=== PATIENT | female | born 1945 | race Caucasian/White ===

== ENCOUNTER 2018-01-03 21:00 | Inpatient (IN) | payer MEDICARE ==
--- NOTE | 2018-01-03 22:12 | RAD ---
AP PELVIS: HISTORY: Fall with injury to pelvis. FINDINGS: There is evidence of a fracture involving the superior ramus on the right. No displacement apparent. The pelvis otherwise appears intact. The hips appear intact. IMPRESSION: Evidence of a fracture involving the right superior ramus. POS: [facility]
--- NOTE | 2018-01-03 22:26 | CT ---
CT HEAD WITHOUT CONTRAST: INDICATIONS: Fall with injury to head. COMPARISON: None. FINDINGS: Mild cortical volume loss. Ventricles have normal size and position. Moderate to severe chronic isc hemic white matter changes with evidence of old lacunar infarcts in both cerebral hemispheres. There is no evidence of hemorrhage, mass, or acute cortical infarct. Sinuses and mastoids are well aerate d. IMPRESSION: 1. Moderate to severe chronic ischemic white matter change. 2. Evidence of lacunar infarcts in the deep white matter in both cerebral hemispheres. 3. No acute cortical infarct. 4. Acute lacunar infarct cannot be excluded. POS: [facility]
--- NOTE | 2018-01-03 22:29 | CT ---
CT CERVICAL SPINE: INDICATIONS: Fall with injury to head and neck. TECHNIQUE: Multiple axial tomograms obtained through the cervical spine with multiplanar reconstruction. FINDINGS: The cervical vertebrae maintain height and alignment. There are mild to moderate degenerative change s of the cervical spine. IMPRESSION: 1. No evidence of cervical spine fracture. 2. Incidentally noted is an enlarged and heterogeneous thyroid with numerous hyperdense nodules. Co nsider elective thyroid ultrasound examination. POS: [facility]
[2018-01-03 22:35] LABS: Hemoglobin 14.3 g/dL (12.0-16.0); Mean Corpuscular HGB CONC 34.8 g/dL (32.0-36.0); Mean Corpuscular Hemoglobin 31.5 pg (27.0-31.0); Mean Corpuscular Volume 90.5 fl (81.0-99.0); Mean Platelet Volume 7.5 fL (7.4-10.4); Platelet Count 222 thou/uL (130-400); RBC Distribution Width 13.3 % (11.5-14.5); Red Blood Cell (RBC) Count 4.52 mill/uL (4.20-5.40); White Blood Cell (WBC) Count 22.4 thou/uL (4.8-10.8)
[2018-01-03 22:40] LABS: PTT 29.1 SEC (22.9-36.1); Prothrombin Time 13.8 SEC (12.0-14.7)
[2018-01-03 22:48] LABS: Band 3 % (5-11); Lymphocytes 3 % (21-51); MDiff Complete? YES; Monocytes 5 % (0-10); Neutrophil 89 % (42-75)
[2018-01-03 22:55] LABS: ALT (SGPT) 21 U/L (8-55); AST (SGOT) 32 U/L (5-34); Albumin 4.2 g/dL (3.4-4.8); Alkaline Phosphatase 76 U/L (40-150); Anion Gap 15 mmol/L (10-20); BUN (Urea Nitrogen) 16 mg/dL (9.8-20.1); Calc. Creatinine Clearance 0 mL/min (70-130); Calcium 9.6 mg/dL (7.8-10.44); Carbon Dioxide 25 mmol/L (23-31); Chloride 105 mmol/L (98-107); Estimated GFR-MDRD 45; Globulin 2.2 g/dL (2.4-3.5); Glucose 168 mg/dL (80-115); Protein, Total 6.4 g/dL (6.0-8.3); Sodium 142 mmol/L (136-145)
[2018-01-03 23:00] LABS: Potassium 2.5 mmol/L (3.5-5.1)
[2018-01-03] MEDS ORDERED: hydrALAZINE 20 MG/ML VIAL ONE (23:00)
[2018-01-03] MEDS ORDERED: Potassium Chloride 20 MEQ TAB ONE (23:04)
--- NOTE | 2018-01-03 23:10 | RAD ---
PORTABLE CHEST: HISTORY: Fall with injury to head and neck. FINDINGS: Lung hamilton are clear of infiltrates. There are scattered calcified granuloma. No effusion, edema, or pneumothorax seen. There is cardiomegaly. The osseous structures appear intact. IMPRESSION: No acute abnormality identified. POS: [facility]
[2018-01-04] MEDS ORDERED: Piperacillin/Tazobactam 3.375 GM VIAL ONE (01:06)
--- NOTE | 2018-01-04 01:21 | PDOC.FPRHP ---
- History of Present Illness Chief Complaint: Fall History of Present Illness: This is a 72 y/o F with PMHx of untreated HTN who presented to the ED after a fall. The patient fell due to tripping on a rug earlier today. She reports she fell on her tailbone and has had pain in that region since then. She denies any headaches, reports some mild chest pain since getting to the ED, but denies any SOB or vision changes. She reports during the fall that she did hit her head, but doesn't have any dizziness or confusion. She does endorse having some increased memory loss problems over the past few months. She endorses decreased appetite today and had some nausea upon arrival the ED, but denies any vomiting. She has not been to see a doctor in over 4 years. ED Course: The pt was given Zosyn 3.375g, Rocephin 2g, Hydralazine 10mg, and KCl 40 mEq in the ED. - Allergies/Adverse Reactions Allergies Allergy/AdvReac Type Severity Reaction Status Date / Time No Known Allergies Allergy Unverified 01/04/18 02:09 - History PMHx: 1. HTN - untreated for 4+ years PSHx: 1. Hysterectomy 2. Cholecystectomy 3. Abd sx for twisted bowels FHx: Mother - cancer (unsure what type) Father - DM2 Social: Smokes < 1/2 ppd for 20 years, drinks a small glass of bourbon every day (est equivalent of 3 ounces). Denies drug use. Lives alone. No PCP - Review of Systems General: reports: weight/appetite/sleep changes, fatigue. denies: fever/chills Eyes: denies: eye pain, vision changes ENT: reports: rhinorrhea. denies: nasal congestion Respiratory: denies: cough, shortness of breath Cardiovascular: reports: chest pain. denies: edema Gastrointestinal: reports: nausea. denies: vomiting, diarrhea, constipation, abdominal pain Genitourinary: denies: dysuria, polyuria Skin: denies: rashes, lesions Musculoskeletal: reports: pain, tenderness Neurological: denies: numbness, syncope - Vital signs BP: 186/86, was initially 226/110 HR: 56 RR: 19 Tmax: 97.8 Pox: 95% on RA Wt: 45.4 kg - Physical Exam Constitutional: NAD, awake, alert and oriented, well developed HEENT: normocephalic and atraumatic, PERRLA, EOMI, conjunctiva clear, grossly normal vision, grossly normal hearing, normal nasal mucosa, MMM, oropharynx clear (dentures in place) Neck: supple, no LAD, other (multiple thyroid nodules, no goiter) Heart: RRR, normal S1/S2, no murmurs/rubs/gallops, pulses present, no edema Lungs: CTAB, no respiratory distress, good air movement, no rales/rhonchi, no wheezing, no retractions Abdomen: soft, non-tender, bowel sounds present, no masses/distention Musculoskeletal: normal structure, normal tone Neurological: no focal deficit, CN II-XII intact Skin: good turgor, capillary refill <2 seconds Heme/Lymphatic: no unusual bruising or bleeding, no purpura Psychiatric: normal mood and affect, good judgment and insight FMR H&P: Results - Labs Result Diagrams: 01/03/18 22:26 01/03/18 22:26 Lab results: WBC 22.4 thou/uL (4.8-10.8) H 01/03/18 22:26 Hgb 14.3 g/dL (12.0-16.0) 01/03/18 22: Hct 40.9 % (36.0-47.0) 01/03/18 22: MCV 90.5 fl (81.0-99.0) 01/03/18 22:26 Plt Count 222 thou/uL (130-400) 01/03/18 22:26 Band Neuts % (Manual) 3 % (5-11) L 01/03/18 22:26 Sodium 142 mmol/L (136-145) 01/03/18 22:26 Potassium 2.5 mmol/L (3.5-5.1) L* 01/03/18 22:26 Chloride 105 mmol/L (98-107) 01/03/18 22:26 Carbon Dioxide 25 mmol/L (23-31) 01/03/18 22:26 BUN 16 mg/dL (9.8-20.1) 01/03/18 22:26 Creatinine 1.19 mg/dL (0.6-1.1) H 01/03/18 22:26 Glucose 168 mg/dL (80-115) H 01/03/18 22:26 Calcium 9.6 mg/dL (7.8-10.44) 01/03/18 22:26 Total Bilirubin 1.0 mg/dL (0.2-1.2) 01/03/18 22:26 AST 32 U/L (5-34) 01/03/18 22:26 ALT 21 U/L (8-55) 01/03/18 22:26 Alkaline Phosphatase 76 U/L (40-150) 01/03/18 22:26 Serum Total Protein 6.4 g/dL (6.0-8.3) 01/03/18 22:26 Albumin 4.2 g/dL (3.4-4.8) 01/03/18 22:26 - EKG Interpretation EKG: NSR - Radiology Interpretation Chest x-ray Status: image reviewed by me, report reviewed by me Additional comment: No acute process CT scan - head Status: image reviewed by me, report reviewed by me Additional comment: Chronic ischemic white matter changes, old lacunar infarcts, no acute cortical infarct Other Status: image reviewed by me, report reviewed by me Additional comment: Pelvis x-ray: R superior pubic rami fracture FMR H&P: A/P - Problem List (1) Hypertensive urgency Current Visit: Yes Status: Acute Code(s): I16.0 - HYPERTENSIVE URGENCY (2) Fracture of superior pubic ramus Current Visit: Yes Status: Acute Code(s): S32.519A - FRACTURE OF SUPERIOR RIM OF UNSP PUBIS, INIT FOR CLOS FX Qualifiers: Encounter type: initial encounter Fracture type: closed Laterality: right Qualified Code(s): S32.511A - Fracture of superior rim of right pubis, initial encounter for closed fracture (3) Leukocytosis Current Visit: Yes Status: Acute Code(s): D72.829 - ELEVATED WHITE BLOOD CELL COUNT, UNSPECIFIED Qualifiers: Leukocytosis type: unspecified Qualified Code(s): D72.829 - Elevated white blood cell count, unspecified (4) Hypokalemia Current Visit: Yes Status: Acute Code(s): E87.6 - HYPOKALEMIA (5) MONSERRAT (acute kidney injury) Current Visit: Yes Status: Acute Code(s): N17.9 - ACUTE KIDNEY FAILURE, UNSPECIFIED (6) Hyperglycemia Current Visit: Yes Status: Acute Code(s): R73.9 - HYPERGLYCEMIA, UNSPECIFIED (7) Tobacco abuse Current Visit: Yes Status: Acute Code(s): Z72.0 - TOBACCO USE (8) Alcohol abuse Current Visit: Yes Status: Acute Code(s): F10.10 - ALCOHOL ABUSE, UNCOMPLICATED - Plan HTN Urgency The patient initially presented with BP 226/110. It has improved to 186/86 after one dose of Hydralazine in the ED. She has had untreated HTN for the past 4 years due to not establishing with a PCP since moving here. -Will start lisinopril 10 mg -Enalaprilat prn -Obs on tele -Monitor BP Hypokalemia Initial K+ was 2.5. s/p 40 mEq of KCl in the ED -Will give another 40mEq of KCl -Monitor with BMP in AM -Check magnesium level R Superior Pubic Rami Fracture Patient presented after fall. She was found to have fx of R superior pubic rami. Wood was called from ED and he discussed that she would benefit from rehab. -PT/OT -Tramadol and tylenol prn pain -Fall precautions MONSERRAT vs CKD Unknown baseline. Cr initially 1.19. Could be related to HTN urgency vs longstanding untreated HTN vs dehydration. -LR @ 85 -Monitor Leukocytosis WBC 22 on admission. Unclear what this is related to as the patient has no signs /symptoms of infection. Could be reactive -Will monitor -LR @ 85 -UA Hyperglycemia Initial Glucose was 168, unsure whether this was fasting. Pt has no h/o diabetes -Will check fasting glucose in AM and if elevated then will check A1c Thyroid Nodules Multiple hypodense thyroid nodules seen on Cervical spine CT scan. -Check TSH -F/U with outpatient thyroid US HTN -Start Lisinopril -Help pt establish with PCP Tobacco Abuse -Production Posting Clerk on cessation EtOH Abuse -Production Posting Clerk on cessation -ASE protocol VTE ppx: Heparin Code status: DNR Disposition/LOS: Obs on tele, length of stay likely less than 48 hours FMR H&P: Upper Level - Pertinent history 72 yo F with PMH of HTN presents after fall at home. Patient states she tripped on a rug and hit her head. No LoC, dizziness, or amnesia after event. No prior falls. Has not seen a doctor for years, and has been off of BP medication for years as well. R superior pubic ramus fx noted on hip Xray, ortho consulted in ER. Was also found to be hypokalemic and have an elevated WBC count, so she is being admitted. Denies any fever/chills, CP, SOB, abd pain , diarrhea, cough/congestion, dysuria, headache. - Pertinent findings PE: T: 97.8 P: 56 BP: 186/86 RR: 19 96% on RA Gen: [place] female in NAD HEENT: PERRL, EOMI, MMM, no lymphadenopathy or thyromegaly CV: RRR no murmurs, distal pulses intact Pulm: CTAB, no wheezes or rhonchi Abd: soft, NT/ND, BS present, no masses or distention Ext: no cyanosis or edema MSK: GORE well, no joint or muscle pain or swelling Neuro: CN 2-12 intact, normal sensation Skin: no rashes or lesions Psych: A&O x3, appropriate in conversation - Plan Date/Time: 01/04/18 0116 72 yo F here after a fall. 1) Hypokalemia: Obs on telemetry floor. Will replete and check in AM. 2) HTN urgency: Initially 200s/100s, normal after hydralazine by time of our interview. Will start on lisinopril. 3) Leukocytosis: Suspect this is not infectious in nature, possibly a stress response. 4) MONSERRAT: Trend BMP, possibly CKD due to poorly controlled HTN for years 5) tobacco abuse: Production Posting Clerk cessation I, [Rachid Watters], have evaluated this patient and agree with findings/plan as outlined by software development intern resident. Pertinent changes/additions are listed here.
[2018-01-04 01:34] LABS: Bilirubin Small (Negative); Blood, Urine Negative (Negative); Clarity CLOUDY (Clear); Glucose, Urine (Dipstick) 100 mg/dL (Negative); Leukocyte Negative (Negative); Nitrite Negative (Negative); Protein, Urine (Dipstick) 30 mg/dL (Neg-Trace); Specific Gravity, Urine 1.023 (1.002-1.036); Urobilinogen 0.2 mg/dL (0.2-1.0); pH, Urine 5.5 (5.0-9.0)
[2018-01-04 01:37] LABS: Bacteria/HPF None Seen HPF (None Seen); Pathc Cast-AUWi Flag 0.87 (0-2.49); Squamous Epithelial 0-3 HPF (0-3); WBC/HPF 0-3 HPF (0-3)
[2018-01-04 01:38] LABS: Yeast-AUWi Flag 82.7 (0-25.0)
[2018-01-04 01:42] LABS: Hyaline Casts/LPF 0-3 HYALINE CAST LPF (0-3 Hyaline); Yeast-All Forms None Seen HPF (None Seen)
[2018-01-04 01:43] LABS: Crystals/HPF 1+ CA OXALATE HPF (Negative); Renal Epithelial None Seen HPF (0-3); Transitional Epithelial NONE SEEN HPF (0-3)
[2018-01-04 03:02] LABS: CKMB 1.4 ng/mL (0-6.6); Troponin I Less than 0.010 ng/mL (< 0.028)
[2018-01-04] MEDS ORDERED: Acetaminophen 500 MG TAB PO PRN (03:15)
[2018-01-04] MEDS ORDERED: Ondansetron ODT 4 MG TAB PO PRN (03:15)
[2018-01-04] MEDS ORDERED: Enalaprilat Dihydrate 1.25 MG/ML VIAL SLOW IVP PRN (03:15)
[2018-01-04] MEDS: Potassium Chloride 20 MEQ in Premix Bag 1 BAG IVPB SCH ×2 (03:35→07:00)
[2018-01-04] MEDS: Lactated Ringer's 1,000 ML IV SCH (03:36)
[2018-01-04 04:53] LABS: #Lymphocytes 0.5 thou/uL (1.20-3.40); #Monocytes 0.7 thou/uL (0.11-0.59); #Neutrophils 13.2 thou/uL (1.40-6.50); %Basophils 0.1 % (0.0-1.0); %Eosinophils 0.1 % (0.0-10.0); %Lymphocytes 3.7 % (21.0-51.0); %Monocytes 4.8 % (0.0-10.0); %Neutrophils 91.3 % (42.0-75.0); Hemoglobin 13.7 g/dL (12.0-16.0); Mean Corpuscular HGB CONC 35.1 g/dL (32.0-36.0); Mean Corpuscular Hemoglobin 31.8 pg (27.0-31.0); Mean Corpuscular Volume 90.7 fl (81.0-99.0); Mean Platelet Volume 8.2 fL (7.4-10.4); Platelet Count 190 thou/uL (130-400); RBC Distribution Width 13.3 % (11.5-14.5); White Blood Cell (WBC) Count 14.5 thou/uL (4.8-10.8)
[2018-01-04 05:12] LABS: Anion Gap 15 mmol/L (10-20); BUN (Urea Nitrogen) 16 mg/dL (9.8-20.1); Calc. Creatinine Clearance 38 mL/min (70-130); Calcium 9.3 mg/dL (7.8-10.44); Carbon Dioxide 24 mmol/L (23-31); Chloride 105 mmol/L (98-107); Estimated GFR-MDRD 54; Glucose 134 mg/dL (80-115); Potassium 3.2 mmol/L (3.5-5.1); Sodium 141 mmol/L (136-145)
[2018-01-04] MEDS ORDERED: Potassium Chloride 20 MEQ TAB PO SCH (07:00)
[2018-01-04] MEDS ORDERED: Prevnar 13-Val Conj/PF 0.5 ML SYRINGE IM ONE (09:00)
[2018-01-04] MEDS: Heparin 5,000 UNITS/ML VIAL SC SCH ×3 (09:07→21:24)
[2018-01-04] MEDS: Lisinopril 10 MG TAB PO SCH (09:08)
[2018-01-04 09:50] LABS: Hemoglobin A1c 4.8 % (4.0-6.0)
--- NOTE | 2018-01-04 12:21 | HP ---
I have reviewed the history and physical of Dr. Vianca Schmidt. I have discussed the case with her. I agree with her assessment and plan. Ms. Erazo is a pleasant 72-year-old white female who was admitte d to the hospital after a fall. She was found to have significant elevations of her blood pressure a nd was admitted for further evaluation and treatment. She is having no chest pain, no shortness of breath. She has not seen a physician in over 4 years. PHYSICAL EXAMINATION: VITAL SIGNS: Currently, her blood pressure is 163/84, pulse rate is 61 and regular, respirations are 16, her pulse ox on room air is 96%. GENERAL: She is awake, alert, in no distress. ENT: No erythema or exudate. NECK: Supple. No JVD. CARDIAC: Heart rhythm regular, S4 gallop. There is a soft grade 2/6 systolic ejection murmur noted. LUNGS: Clear, without rales or wheezes. ABDOMEN: Flat and soft, without guarding, rebound or rigidity. EXTREMITIES: Trace edema. NEUROLOGIC: No focal deficits. LABORATORY DATA: CBC: White count is now 14,500, hemoglobin was 13.7, hematocrit is 39. Chemistrie s; initially she had a potassium at 2.5. It is now 3.2. Her sodium is 141, chloride is 105, bicarb is 24, BUN is 16, creatinine is 1.01. TSH is 4.2586. She was incidentally noted on a CT of her neck to have enlarged and heterogenous thyroid with numerou s hyperdense nodules. We will proceed with ultrasound following her normal TSH. ASSESSMENT: Hypertensive urgency, improving. PLAN: Continue with current medical management of her hypertension. Workup her thyroid nodules.
[2018-01-04] MEDS: hydrALAZINE 20 MG/ML VIAL SLOW IVP PRN ×3 (20:01→23:27)
[2018-01-04] MEDS: Sodium Chloride 0.9% 10 ML ONE (21:21)
[2018-01-04] MEDS ORDERED: Sodium Chloride 0.9% 10 ML ONE (22:37)
[2018-01-04] MEDS: traMADol HCl 50 MG TAB PO PRN (23:27)
[2018-01-05] MEDS: Lactated Ringer's 1,000 ML IV SCH (00:13)
[2018-01-05] MEDS ORDERED: HYDROcodone/Acetaminophen 5/325 mg Tablet PO SCH (01:00)
[2018-01-05] MEDS ORDERED: Sodium Chloride 0.9% 10 ML ONE ×3 (04:22→12:34)
[2018-01-05] MEDS: hydrALAZINE 20 MG/ML VIAL SLOW IVP PRN ×4 (04:26→20:00)
[2018-01-05 05:51] LABS: #Basophils 0.1 thou/uL (0.0-0.2); #Eosinphils 0.1 thou/uL (0.0-0.7); #Lymphocytes 1.8 thou/uL (1.20-3.40); #Monocytes 1.1 thou/uL (0.11-0.59); #Neutrophils 7.3 thou/uL (1.40-6.50); %Basophils 0.7 % (0.0-1.0); %Eosinophils 0.5 % (0.0-10.0); %Lymphocytes 17.1 % (21.0-51.0); %Monocytes 10.5 % (0.0-10.0); %Neutrophils 71.2 % (42.0-75.0); Hemoglobin 12.8 g/dL (12.0-16.0); Mean Corpuscular Hemoglobin 31.1 pg (27.0-31.0); Mean Corpuscular Volume 91.6 fl (81.0-99.0); Mean Platelet Volume 8.6 fL (7.4-10.4); Platelet Count 158 thou/uL (130-400); RBC Distribution Width 13.6 % (11.5-14.5); Red Blood Cell (RBC) Count 4.11 mill/uL (4.20-5.40); White Blood Cell (WBC) Count 10.3 thou/uL (4.8-10.8)
[2018-01-05 06:05] LABS: Anion Gap 11 mmol/L (10-20); BUN (Urea Nitrogen) 13 mg/dL (9.8-20.1); Calc. Creatinine Clearance 43 mL/min (70-130); Calcium 9.4 mg/dL (7.8-10.44); Carbon Dioxide 26 mmol/L (23-31); Chloride 108 mmol/L (98-107); Estimated GFR-MDRD 63; Glucose 99 mg/dL (80-115); Potassium 3.5 mmol/L (3.5-5.1); Sodium 141 mmol/L (136-145)
--- NOTE | 2018-01-05 07:28 | PDOC.FM ---
- Subjective Subjective: Pt c/o pain last night when bp elevated to 200s systolic. Endorsed some itching and pain this morning as well. - Objective MAR Reviewed: Yes Vital Signs & Weight: Vital Signs (12 hours) Temp Pulse Resp BP BP BP Pulse Ox 01/05/18 05:23 58 L 20 148/81 H 01/05/18 04:00 98.6 F 54 L 16 198/93 H 95 01/05/18 00:08 20 172/81 H 01/04/18 23:25 99.7 F H 70 20 190/87 H 96 01/04/18 23:24 190/87 H 01/04/18 22:17 212/98 H 01/04/18 21:18 77 20 218/92 H 01/04/18 20:01 99.8 F H 66 20 204/94 H 204/94 H 94 L Weight Admit Weight 46.357 kg Weight 46.357 kg I&O: 01/04/18 01/05/18 01/06/18 06:59 06:59 06:59 Intake Total 355 1894 Output Total 275 700 Balance 80 1194 Result Diagrams: 01/05/18 05:13 01/05/18 05:13 Phys Exam - Physical Examination Constitutional: NAD HEENT: PERRLA, moist MMs Respiratory: no wheezing, no rales, no rhonchi, clear to auscultation bilateral Cardiovascular: no significant murmur 2/6 systolic ejection murmur heard best at the righ upper sternal border Gastrointestinal: soft, non-tender, no distention Musculoskeletal: no edema, pulses present Neurological: non-focal, normal sensation Psychiatric: normal affect, A&O x 3 Skin: no rash, normal turgor Dx/Plan (1) MONSERRAT (acute kidney injury) Code(s): N17.9 - ACUTE KIDNEY FAILURE, UNSPECIFIED Status: Acute (2) Fracture of superior pubic ramus Code(s): S32.519A - FRACTURE OF SUPERIOR RIM OF UNSP PUBIS, INIT FOR CLOS FX Status: Acute Qualifiers: Encounter type: initial encounter Fracture type: closed Laterality: right Qualified Code(s): S32.511A - Fracture of superior rim of right pubis, initial encounter for closed fracture (3) Hyperglycemia Code(s): R73.9 - HYPERGLYCEMIA, UNSPECIFIED Status: Acute (4) Hypertensive urgency Code(s): I16.0 - HYPERTENSIVE URGENCY Status: Acute (5) Hypokalemia Code(s): E87.6 - HYPOKALEMIA Status: Acute (6) Tobacco abuse Code(s): Z72.0 - TOBACCO USE Status: Acute - Plan Plan: HTN Urgency The patient initially presented with BP 226/110. -140s during the day yesterday, abrupt increase to 204/94 last night d/t worsening pain -Responded to 5mg hydralazine IV X3 -Will add HCTZ 12.5 BID and continue lisinopril 10mg daily -Likely a pain component contributing to abrupt increase in bp as well. Will continue to control pain with tramadol and tylenol prn -Obs on tele -Continue to monitor BP R Superior Pubic Rami Fracture Patient presented after fall. She was found to have fx of R superior pubic rami. Wood was called from ED and he discussed that she would benefit from rehab. -PT/OT -Tramadol and tylenol prn pain -Fall precautions MONSERRAT vs CKD Unknown baseline. Cr initially 1.19-->.89 -Resolved this am -Dc LR @ 85 -Monitor Hypokalemia -resolved Leukocytosis WBC 22 on admission. Unclear what this is related to as the patient has no signs /symptoms of infection. Could be reactive -Will monitor -LR @ 85 -UA Hyperglycemia -Hba1c 4.8 -The elevated sugar was likely a stress response to the fracture and pain. Thyroid Nodules Multiple hypodense thyroid nodules seen on Cervical spine CT scan. -TSH wnl -Thyroid US ordered HTN -Continue Lisinopril and add HCTZ 12.5 mb BID -Help pt establish with PCP Tobacco Abuse -Skiver Hand on cessation EtOH Abuse -Skiver Hand on cessation -ASE protocol VTE ppx: Heparin Code status: DNR Disposition/LOS: Obs on tele, length of stay likely less than 48 hours
[2018-01-05] MEDS: traMADol HCl 50 MG TAB PO PRN (08:58)
[2018-01-05] MEDS: Heparin 5,000 UNITS/ML VIAL SC SCH ×3 (08:59→19:59)
[2018-01-05] MEDS: Lisinopril 10 MG TAB PO SCH (09:01)
--- NOTE | 2018-01-05 10:55 | ULT ---
THYROID ULTRASOUND: History: Thyroid nodules seen on CT. FINDINGS: The right lobe measures 4.4 cm in length and the left lobe measures 4.2 cm in length. The isthmus minerva sures 4 mm. The thyroid gland demonstrates diffuse heterogeneity. No definite focal solid or cystic mass is seen. IMPRESSION: Heterogeneous thyroid gland. POS: [facility]
[2018-01-05] MEDS: Sodium Chloride 0.9% 10 ML ONE (11:48)
[2018-01-05] MEDS ORDERED: diphenhydrAMINE 25 MG CAP PO PRN (11:52)
--- NOTE | 2018-01-05 12:29 | CON ---
DATE OF CONSULTATION: 01/05/2018 REQUESTING PHYSICIAN: Pamela St M.D. CONSULTING PHYSICIAN: Justin Muir M.D. REASON FOR CONSULTATION: Superior pubic ramus fracture. HISTORY OF PRESENT ILLNESS: This is a 72-year-old female who presented to the emergency de partment after a trip and fall at home. She states that she lost her balance and tripped. She state s this involved her dog getting in the way. She fell, landing on her bottom. She states that she lazcano d a pelvic and groin pain at the time of the fall. She does report a history of previous falls in ich she broke her tail bone. X-rays obtained in the emergency department show a nondisplaced right s uperior pubic ramus fracture. We were consulted for this reason. At bedside today, the patient stat es that she hit her head, but did not lose consciousness or have any dizziness. She denies any other injuries at the time of the fall. She denies any numbness or tingling distally in either of her leg s. She states her pain is controlled if she does not move. PAST MEDICAL HISTORY: Significant for hypertension, which has been untreated for the past 4 years. PAST SURGICAL HISTORY: Significant for hysterectomy, cholecystectomy, and abdominal surgery for twis darren bowel. FAMILY HISTORY: Reviewed and noncontributory. SOCIAL HISTORY: Patient states that she smokes approximately a half a pack a day for the past 20 yea rs. She states she drinks every day, either wine or bourbon. Denies any illicit drug use. Lives al one. ALLERGIES: No known drug allergies. REVIEW OF SYSTEMS: Ten-point review of systems conducted and otherwise negative except for as stated above. PHYSICAL EXAMINATION: VITAL SIGNS: Temperature 97.9, pulse of 58, blood pressure 154/87, respiratory rate of 16. GENERAL: The patient is awake, alert, and oriented x3. She is in no acute distress. Family at beds francisco j today. HEENT: Head is normocephalic, atraumatic. NECK: Supple. Trachea is midline. RESPIRATORY: Breathing is nonlabored. EXTREMITIES: Bilateral lower extremities examined today. There is active movement in both lower ext remities. Negative log roll on the right and the left leg. The patient is able to actively flex at the hip and the knee on both sides, however, the left side elicits pain. She has mild tenderness to palpation with the left side of the pelvis. Neurovascular status intact distally bilaterally. RADIOGRAPHIC FINDINGS: Including an AP pelvis demonstrates a nondisplaced superior right pubic ramus fracture. This radiographic finding was reviewed with Dr. Mishra. ASSESSMENT: Right superior pubic ramus fracture, nondisplaced. PLAN: At this time, the patient may weightbear as tolerated. I have gone over this plan of care wit h her at this time as well as with her family member. She will likely have some pain with early ambu lation. This will improve over time as she heals. She may ambulate with physical therapy with alex coburn. This is a nonsurgical fracture. Plan of care discussed and family and patient are in agreean ce and verbalized understanding.
[2018-01-05] MEDS: Hydrochlorothiazide 25 MG TAB PO SCH (19:59)
[2018-01-06 05:45] LABS: #Eosinphils 0.1 thou/uL (0.0-0.7); #Lymphocytes 1.8 thou/uL (1.20-3.40); #Neutrophils 5.9 thou/uL (1.40-6.50); %Basophils 0.5 % (0.0-1.0); %Eosinophils 1.7 % (0.0-10.0); %Lymphocytes 20.2 % (21.0-51.0); %Monocytes 11.2 % (0.0-10.0); %Neutrophils 66.3 % (42.0-75.0); Hemoglobin 12.7 g/dL (12.0-16.0); Mean Corpuscular HGB CONC 34.3 g/dL (32.0-36.0); Mean Corpuscular Hemoglobin 31.6 pg (27.0-31.0); Mean Corpuscular Volume 92.1 fl (81.0-99.0); Mean Platelet Volume 8.1 fL (7.4-10.4); Platelet Count 158 thou/uL (130-400); RBC Distribution Width 13.4 % (11.5-14.5); Red Blood Cell (RBC) Count 4.02 mill/uL (4.20-5.40); White Blood Cell (WBC) Count 8.9 thou/uL (4.8-10.8)
[2018-01-06] MEDS: hydrALAZINE 20 MG/ML VIAL SLOW IVP PRN ×3 (05:52→11:55)
[2018-01-06 06:00] LABS: Anion Gap 11 mmol/L (10-20); BUN (Urea Nitrogen) 12 mg/dL (9.8-20.1); Calc. Creatinine Clearance 35 mL/min (70-130); Calcium 9.4 mg/dL (7.8-10.44); Carbon Dioxide 27 mmol/L (23-31); Chloride 103 mmol/L (98-107); Estimated GFR-MDRD 54; Glucose 100 mg/dL (80-115); Potassium 3.6 mmol/L (3.5-5.1); Sodium 137 mmol/L (136-145)
--- NOTE | 2018-01-06 07:37 | ADD-PRG ---
ADDENDUM This is an addendum to the note of Dr. Pamela Marroquin. Ms. Erazo has just returned from her thyroid ultrasound. OBJECTIVE: GENERAL: She is pleasant, awake, alert, in no distress. VITAL SIGNS: Her current vital signs, blood pressure is now 154/87, pulse rate 60, respirations 16. She is nearing time and we can discharge her either to rehab or home, as she will need rehabilitation for her superior pubic ramus fracture, which is stable.
[2018-01-06] MEDS ORDERED: Acetaminophen 1,000 MG in Premix Bag 1 BAG IVPB SCH ×2 (08:15→12:00)
--- NOTE | 2018-01-06 08:15 | PDOC.FM ---
- Subjective Subjective: Elevated blood pressures overnight in 220s range. Pt has not received prn pain medications. She denies pain this morning. She denies any complaints this morning. - Objective MAR Reviewed: Yes Vital Signs & Weight: Vital Signs (12 hours) Temp Pulse Resp BP BP Pulse Ox 01/06/18 06:31 161/80 H 01/06/18 05:53 222/106 H 01/06/18 05:52 65 01/06/18 04:00 99.1 F 65 12 233/109 H 96 01/06/18 00:01 99.2 F 65 14 157/105 H 96 01/05/18 21:09 179/84 H Weight Admit Weight 46.357 kg Weight 43.363 kg I&O: 01/05/18 01/06/18 01/07/18 06:59 06:59 06:59 Intake Total 1894 500 Output Total 1550 925 Balance 344 -425 Result Diagrams: 01/06/18 05:30 01/06/18 05:30 Phys Exam - Physical Examination Constitutional: NAD HEENT: PERRLA, moist MMs Neck: no nodes, no JVD Respiratory: no wheezing, no rales, no rhonchi, clear to auscultation bilateral Cardiovascular: RRR, no significant murmur Gastrointestinal: soft, non-tender, no distention Musculoskeletal: no edema, pulses present Neurological: non-focal, normal sensation Psychiatric: normal affect, A&O x 3 Dx/Plan (1) MONSERRAT (acute kidney injury) Code(s): N17.9 - ACUTE KIDNEY FAILURE, UNSPECIFIED Status: Acute (2) Fracture of superior pubic ramus Code(s): S32.519A - FRACTURE OF SUPERIOR RIM OF UNSP PUBIS, INIT FOR CLOS FX Status: Acute Qualifiers: Encounter type: initial encounter Fracture type: closed Laterality: right Qualified Code(s): S32.511A - Fracture of superior rim of right pubis, initial encounter for closed fracture (3) Hyperglycemia Code(s): R73.9 - HYPERGLYCEMIA, UNSPECIFIED Status: Acute (4) Hypertensive urgency Code(s): I16.0 - HYPERTENSIVE URGENCY Status: Acute (5) Hypokalemia Code(s): E87.6 - HYPOKALEMIA Status: Acute (6) Tobacco abuse Code(s): Z72.0 - TOBACCO USE Status: Acute - Plan Plan: HTN Urgency The patient initially presented with BP 226/110. -continued elevated bp's in 200s overnight. -Will continue HCTZ 12.5 BID and continue lisinopril 10mg daily -Likely a pain component contributing to abrupt increase in bp as well. Will continue to control pain with tramadol and tylenol prn -Consider secondary causes of htn other than pain: pt has had normal potassium levels, normal calcium levels, mildly elevated tsh but normal ft4 and normal thyroid us (after CT thought they saw nodules); consider renal artery ultrasound and echo (pt does have 2/6 systolic ejection murmur). -Continue to monitor BP R Superior Pubic Rami Fracture Patient presented after fall. She was found to have fx of R superior pubic rami. Wood was called from ED and he discussed that she would benefit from rehab. -PT/OT, pending rehab approval -Tramadol prn pain and tyle hermes as pt is still having uncontrolled pain but doesn't seem to be asking for the medication -Fall precautions MONSERRAT vs CKD Unknown baseline. Cr initially 1.19-->.89 -Resolved this am Hypokalemia -resolved Hyperglycemia -Hba1c 4.8 -The elevated sugar was likely a stress response to the fracture and pain. Thyroid Nodules -thyr US wnl HTN -uncontrolled -Continue Lisinopril and add HCTZ 12.5 mb BID -consider secondary causes, see above -Help pt establish with PCP Tobacco Abuse -Billing And Quality Technician on cessation EtOH Abuse -Billing And Quality Technician on cessation -ASE protocol Leukocytosis -resolved VTE ppx: Heparin Code status: DNR
[2018-01-06] MEDS: Hydrochlorothiazide 25 MG TAB PO SCH ×2 (09:06→19:20)
[2018-01-06] MEDS: Lisinopril 10 MG TAB PO SCH (09:07)
[2018-01-06] MEDS: Heparin 5,000 UNITS/ML VIAL SC SCH ×3 (09:08→19:20)
--- NOTE | 2018-01-06 12:19 | ADD-PRG ---
DATE OF SERVICE: 01/06/2018 This is an addendum to the note of Dr. Pamela Marroquin. Ms. Erazo it is resting quietly in no distress. She denies any pain. Her blood pressures have been slightly erratic, but is currently 190/80. She is asymptomatic. We are pending inpatient rehabilitat ion referral and transfer. I have suggested we increase her lisinopril over the next several days. If her blood pressure is still not below 150 systolic consider the addition of amlodipine. In any ev ent, we are managing her blood pressure and she is asymptomatic even with the higher readings.
[2018-01-06] MEDS: traMADol HCl 50 MG TAB PO PRN (14:06)
[2018-01-06 14:37] VITALS: BMI 16.9
[2018-01-06] MEDS: Acetaminophen 500 MG TAB PO SCH ×2 (17:09→23:22)
[2018-01-07] MEDS: hydrALAZINE 20 MG/ML VIAL SLOW IVP PRN ×2 (00:08→17:01)
[2018-01-07] MEDS: Acetaminophen 500 MG TAB PO SCH ×2 (05:22→12:10)
[2018-01-07] MEDS: Hydrochlorothiazide 25 MG TAB PO SCH ×2 (08:35→19:14)
[2018-01-07] MEDS: traMADol HCl 50 MG TAB PO PRN (08:36)
[2018-01-07] MEDS: Heparin 5,000 UNITS/ML VIAL SC SCH ×3 (08:38→19:15)
--- NOTE | 2018-01-07 08:58 | PDOC.FM ---
- Subjective Subjective: No acute events overnight. Pt denies pain this morning. Feels well. - Objective MAR Reviewed: Yes Vital Signs & Weight: Vital Signs (12 hours) Temp Pulse Resp BP BP BP BP 01/07/18 08:35 177/83 H 01/07/18 08:28 98.1 F 56 L 20 177/83 H 01/07/18 08:27 98.1 F 01/07/18 04:19 98.3 F 58 L 15 137/81 01/07/18 01:33 161/98 H 01/07/18 00:08 63 01/07/18 00:00 97.1 F L 71 20 197/74 H Pulse Ox 01/07/18 08:35 01/07/18 08:28 01/07/18 08:27 01/07/18 04:19 98 01/07/18 01:33 01/07/18 00:08 01/07/18 00:00 98 Weight Admit Weight 46.357 kg Weight 42.184 kg I&O: 01/06/18 01/07/18 01/08/18 06:59 06:59 06:59 Intake Total 500 1225 Output Total 925 1750 Balance -425 -525 Result Diagrams: 01/06/18 05:30 01/06/18 05:30 Phys Exam - Physical Examination Constitutional: NAD HEENT: PERRLA, moist MMs Neck: no JVD Respiratory: no wheezing, no rales, clear to auscultation bilateral systolic ejection murmur 2/6 Gastrointestinal: soft, non-tender, no distention Musculoskeletal: no edema, pulses present Neurological: non-focal, normal sensation Psychiatric: normal affect, A&O x 3 Skin: no rash Dx/Plan (1) MONSERRAT (acute kidney injury) Code(s): N17.9 - ACUTE KIDNEY FAILURE, UNSPECIFIED Status: Acute (2) Fracture of superior pubic ramus Code(s): S32.519A - FRACTURE OF SUPERIOR RIM OF UNSP PUBIS, INIT FOR CLOS FX Status: Acute Qualifiers: Encounter type: initial encounter Fracture type: closed Laterality: right Qualified Code(s): S32.511A - Fracture of superior rim of right pubis, initial encounter for closed fracture (3) Hyperglycemia Code(s): R73.9 - HYPERGLYCEMIA, UNSPECIFIED Status: Acute (4) Hypertensive urgency Code(s): I16.0 - HYPERTENSIVE URGENCY Status: Acute (5) Hypokalemia Code(s): E87.6 - HYPOKALEMIA Status: Acute (6) Tobacco abuse Code(s): Z72.0 - TOBACCO USE Status: Acute - Plan Plan: Plan: HTN Urgency -bps 160-170s systolic w/ one in the 190s -Will continue HCTZ 12.5 BID and increase Lisinopril from 20mg to 30mg daily -continue to monitor R Superior Pubic Rami Fracture -R superior pubic rami. -Pending inpatient rehab placement -Fall precautions -pain meds prn MONSERRAT vs CKD Unknown baseline. Cr initially 1.19-->.89 -Resolved Hypokalemia -resolved Hyperglycemia -Hba1c 4.8 -The elevated sugar was likely a stress response to the fracture and pain. Thyroid Nodules -thyr US wnl HTN -uncontrolled -increase Lisinopril to 30mg daily and continue HCTZ 12.5 mb BID -Help pt establish with PCP Tobacco Abuse -Dealer Sales Manager on cessation EtOH Abuse -Dealer Sales Manager on cessation -ASE protocol Leukocytosis -resolved VTE ppx: Heparin Code status: DNR
[2018-01-07] MEDS ORDERED: Lisinopril 20 MG TAB PO SCH (09:00)
--- NOTE | 2018-01-07 11:31 | ADD-PRG ---
DATE OF SERVICE: 01/07/2018 ADDENDUM This is an addendum to the note of Dr. Marroquin. Ms. Erazo is resting quietly in bed in no distress. We are continuing to adjust her blood pressure m edications while awaiting inpatient rehabilitation for her pubic ramus fracture.
[2018-01-07] MEDS ORDERED: Acetaminophen 500 MG TAB PO PRN (12:01)
[2018-01-07] MEDS ORDERED: Sodium Chloride 0.9% 1,000 ML IV SCH (18:00)
[2018-01-08] MEDS: hydrALAZINE 20 MG/ML VIAL SLOW IVP PRN ×2 (04:55→11:52)
--- NOTE | 2018-01-08 07:17 | PDOC.FM ---
Addendum entered and electronically signed by Vianca Schmidt MD 01/08/18 09:24: Documentation correction: Change Hypertensive Urgency to Hypertensive Emergency due to patient having persistently elevated BP's with signs of end organ damage including MONSERRAT. Add diagnoses: Deconditioning -Will check pre-albumin -Continue PT/OT Protein-calorie malnutrition -Will check pre-albumin -Nutrition consult -Ensure enlive Patient should meet criteria for inpatient status throughout her hospitalization due to Hypertensive Emergency. Will change this at this time. Original Note: - Subjective Subjective: Patient reports some hip pain and that she hasn't been as hungry due to nausea. She denies any headaches, blurry vision, or chest pain. - Objective MAR Reviewed: Yes Vital Signs & Weight: Vital Signs (12 hours) Temp Pulse Resp BP BP BP Pulse Ox 01/08/18 05:32 148/77 H 01/08/18 04:55 59 L 01/08/18 04:00 98.2 F 59 L 17 195/93 H 94 L 01/07/18 23:34 98.7 F 65 17 181/88 H 95 01/07/18 20:00 98.4 F 63 16 01/07/18 19:18 98.4 F 63 16 178/88 H 96 Weight Admit Weight 46.357 kg Weight 42.275 kg I&O: 01/07/18 01/08/18 01/09/18 06:59 06:59 06:59 Intake Total 1225 1100 Output Total 1750 1980 Balance -525 -120 Result Diagrams: 01/06/18 05:30 01/06/18 05:30 <Vianca Schmidt - Last Filed: 01/08/18 07:14> - Objective Vital Signs & Weight: Vital Signs (12 hours) Temp Pulse Resp BP BP Pulse Ox 01/09/18 08:10 56 L 01/09/18 08:01 97.5 F L 56 L 16 145/97 H 96 01/09/18 08:00 97.5 F L 56 L 16 145/97 H 96 01/09/18 03:44 97.9 F 54 L 16 174/84 H 98 01/08/18 23:39 97.7 F 65 12 174/90 H 96 I&O: 01/08/18 01/09/18 01/10/18 06:59 06:59 06:59 Intake Total 1000 Output Total 200 Balance 800 Result Diagrams: 01/06/18 05:30 01/06/18 05:30 <Jack Watkins - Last Filed: 01/09/18 10:51> Phys Exam - Physical Examination Constitutional: NAD HEENT: moist MMs Respiratory: no wheezing, no rales, no rhonchi, clear to auscultation bilateral Cardiovascular: RRR 3/6 systolic ejection murmur Gastrointestinal: soft, non-tender, no distention, positive bowel sounds Musculoskeletal: no edema, pulses present Neurological: non-focal, moves all 4 limbs Skin: normal turgor, cap refill <2 seconds <Vianca Schmidt - Last Filed: 01/08/18 07:14> Dx/Plan (2) Fracture of superior pubic ramus Code(s): S32.519A - FRACTURE OF SUPERIOR RIM OF UNSP PUBIS, INIT FOR CLOS FX Status: Acute QualifierTitle: Encounter type: initial encounter Fracture type: closed Laterality: right Qualified Code(s): S32.511A - Fracture of superior rim of right pubis, initial encounter for closed fracture (3) Leukocytosis Code(s): D72.829 - ELEVATED WHITE BLOOD CELL COUNT, UNSPECIFIED Status: Resolved QualifierTitle: Leukocytosis type: unspecified Qualified Code(s): D72.829 - Elevated white blood cell count, unspecified (4) Hypokalemia Code(s): E87.6 - HYPOKALEMIA Status: Resolved (5) MONSERRAT (acute kidney injury) Code(s): N17.9 - ACUTE KIDNEY FAILURE, UNSPECIFIED Status: Acute (6) Tobacco abuse Code(s): Z72.0 - TOBACCO USE Status: Acute (7) Alcohol abuse Code(s): F10.10 - ALCOHOL ABUSE, UNCOMPLICATED Status: Acute (9) Hypertensive urgency Code(s): I16.0 - HYPERTENSIVE URGENCY Status: Acute (10) Hyperglycemia Code(s): R73.9 - HYPERGLYCEMIA, UNSPECIFIED Status: Resolved - Plan Plan: HTN Urgency BP's have ranged from 148/77-194/108 in past 24 hours with majority in 180s/ 80s. Required Hydralazine 10mg twice in past 24 hours -Will continue HCTZ 12.5 BID and increase Lisinopril from 20mg to 30mg daily -continue to monitor R Superior Pubic Rami Fracture R superior pubic rami fx. -Patient was declined from inpatient rehab, will attempt to get her accepted to SNF -Fall precautions -pain meds prn MONSERRAT vs CKD Unknown baseline. Cr initially 1.19->.89->1.02 Hypokalemia -resolved Hyperglycemia Hba1c 4.8 -The elevated sugar was likely a stress response to the fracture and pain. Thyroid Nodules -thyr US wnl HTN -uncontrolled -increase Lisinopril to 30mg daily and continue HCTZ 12.5 mg BID -Help pt establish with PCP, gave her my business card this AM. Tobacco Abuse -Assistant Brand Manager on cessation EtOH Abuse ASE scores have been 3 over the past 24 hours -Assistant Brand Manager on cessation -ASE protocol Leukocytosis -resolved, was likely a stress response VTE ppx: Lovenox Code status: DNR <Vianca Schmidt - Last Filed: 01/08/18 07:14> Attending Addendum - Attending Addendum Date/Time: 01/09/18 1051 I personally evaluated the patient and discussed the management with Dr. Schmidt. I agree with the History, Examination, Assessment and Plan documented above with any addition or exceptions noted below. <Jack Watkins - Last Filed: 01/09/18 10:51>
[2018-01-08] MEDS: Folic Acid 1 MG TAB PO SCH (08:24)
[2018-01-08] MEDS: Hydrochlorothiazide 25 MG TAB PO SCH ×2 (08:24→21:01)
[2018-01-08] MEDS: Enoxaparin Sodium 30 MG/0.3 ML SYRINGE SC SCH (08:24)
[2018-01-08] MEDS: Multivitamin W/ Minerals 1 TAB PO SCH (08:25)
[2018-01-08] MEDS: Lisinopril 20 MG TAB PO SCH (08:25)
[2018-01-08] MEDS: traMADol HCl 50 MG TAB PO PRN ×2 (08:53→16:44)
--- NOTE | 2018-01-09 07:11 | PDOC.FM ---
- Subjective Subjective: Patient reports that she has not had a BM since before admission to the hospital. She reports that her hip doesn't hurt her unless she moves it. She is not feeling very hungry. She denies any headaches, blurry vision, or chest pain. She denies nausea, vomiting. - Objective MAR Reviewed: Yes Vital Signs & Weight: Vital Signs (12 hours) Temp Pulse Resp BP BP Pulse Ox 01/09/18 03:44 97.9 F 54 L 16 174/84 H 98 01/08/18 23:39 97.7 F 65 12 174/90 H 96 01/08/18 19:32 97.8 F 68 18 169/95 H 169/95 H 96 I&O: 01/08/18 01/09/18 01/10/18 06:59 06:59 06:59 Intake Total 1000 Output Total 200 Balance 800 Result Diagrams: 01/06/18 05:30 01/06/18 05:30 <Vianca Schmidt - Last Filed: 01/09/18 09:48> - Objective Vital Signs & Weight: Vital Signs (12 hours) Temp Pulse Resp BP BP Pulse Ox 01/09/18 08:10 56 L 01/09/18 08:01 97.5 F L 56 L 16 145/97 H 96 01/09/18 08:00 97.5 F L 56 L 16 145/97 H 96 01/09/18 03:44 97.9 F 54 L 16 174/84 H 98 01/08/18 23:39 97.7 F 65 12 174/90 H 96 I&O: 01/08/18 01/09/18 01/10/18 06:59 06:59 06:59 Intake Total 1000 Output Total 200 Balance 800 Result Diagrams: 01/06/18 05:30 01/06/18 05:30 <Jack Watkins - Last Filed: 01/09/18 11:01> Phys Exam - Physical Examination Constitutional: NAD HEENT: moist MMs Respiratory: no wheezing, no rales, no rhonchi, clear to auscultation bilateral Cardiovascular: RRR, no rub 3/6 systolic ejection murmur Gastrointestinal: soft, non-tender, no distention, positive bowel sounds Musculoskeletal: no edema, pulses present Neurological: non-focal, moves all 4 limbs Psychiatric: normal affect Skin: normal turgor, cap refill <2 seconds <Vianca Schmidt - Last Filed: 01/09/18 09:48> Dx/Plan (1) Hypertensive emergency Code(s): I16.1 - HYPERTENSIVE EMERGENCY Status: Acute (2) Fracture of superior pubic ramus Code(s): S32.519A - FRACTURE OF SUPERIOR RIM OF UNSP PUBIS, INIT FOR CLOS FX Status: Acute QualifierTitle: Encounter type: initial encounter Fracture type: closed Laterality: right Qualified Code(s): S32.511A - Fracture of superior rim of right pubis, initial encounter for closed fracture (3) Leukocytosis Code(s): D72.829 - ELEVATED WHITE BLOOD CELL COUNT, UNSPECIFIED Status: Resolved QualifierTitle: Leukocytosis type: unspecified Qualified Code(s): D72.829 - Elevated white blood cell count, unspecified (4) Hypokalemia Code(s): E87.6 - HYPOKALEMIA Status: Resolved (5) MONSERRAT (acute kidney injury) Code(s): N17.9 - ACUTE KIDNEY FAILURE, UNSPECIFIED Status: Acute (6) Tobacco abuse Code(s): Z72.0 - TOBACCO USE Status: Acute (7) Alcohol abuse Code(s): F10.10 - ALCOHOL ABUSE, UNCOMPLICATED Status: Acute (8) Physical deconditioning Code(s): R53.81 - OTHER MALAISE Status: Acute - Plan Plan: Hypertensive Emergency BP's initially in 220's/110's with an MONSERRAT. The BP's and MONSERRAT have improved. BP's have ranged from 156/79-191/101 in past 24 hours with majority in 160s-170s /80s. Required Hydralazine 10mg once in past 24 hours -Will continue HCTZ 12.5 BID and lisinopril 30mg daily, will add Procardia 30mg -continue to monitor R Superior Pubic Rami Fracture R superior pubic rami fx. -Patient was declined from inpatient rehab, will attempt to get her accepted to SNF at [facility] -Fall precautions -pain meds prn MONSERRAT Unknown baseline. Cr initially 1.19. Has improved s/p fluids. -Continue to monitor outpatient as pt may have an element of CKD due to longstanding uncontrolled HTN. Physical Deconditioning Patient is not at baseline physical status after her fall and is requiring a rolling walker to walk just a few steps. She has had decreased PO intake due to decreased appetite. -PT/OT -Plan for SNF at discharge -Ensure enlive TID Hypokalemia -resolved Hyperglycemia Hba1c 4.8 -The elevated sugar was likely a stress response to the fracture and pain. Thyroid Nodules -thyr US wnl HTN -uncontrolled -Lisinopril 30mg daily and HCTZ 12.5 mg BID, Will add procardia 30mg -Help pt establish with PCP Tobacco Abuse -Corporate Event Planner on cessation EtOH Abuse ASE scores have been 3-4 over the past 24 hours -Corporate Event Planner on cessation -ASE protocol -Thiamine, multivitamin, folic acid Leukocytosis -resolved, was likely a stress response Constipation -Miralax and docusate <Vianca Schmidt - Last Filed: 01/09/18 09:48> Attending Addendum - Attending Addendum Date/Time: 01/09/18 1100 I personally evaluated the patient and discussed the management with Dr. Schmidt. I agree with the History, Examination, Assessment and Plan documented above with any addition or exceptions noted below. BP progressively better. Patient will require inpt rehab/nursing home after discharge. Appreciate PT care. <Jack Watkins - Last Filed: 01/09/18 11:01>
[2018-01-09] MEDS: Hydrochlorothiazide 25 MG TAB PO SCH ×2 (08:03→21:27)
[2018-01-09] MEDS: Docusate 100 MG CAP PO SCH ×2 (08:03→21:27)
[2018-01-09] MEDS: Polyethylene Glycol 3350 17 GM Packet PO SCH (08:03)
[2018-01-09] MEDS: Folic Acid 1 MG TAB PO SCH (08:03)
[2018-01-09] MEDS: Lisinopril 20 MG TAB PO SCH (08:03)
[2018-01-09] MEDS: Multivitamin W/ Minerals 1 TAB PO SCH (08:03)
[2018-01-09] MEDS: Enoxaparin Sodium 30 MG/0.3 ML SYRINGE SC SCH (08:04)
[2018-01-09] MEDS: NIFEdipine XL 30 MG TAB PO SCH (08:10)
[2018-01-09] MEDS: traMADol HCl 50 MG TAB PO PRN (13:39)
--- NOTE | 2018-01-10 05:43 | PDOC.FM ---
- Subjective Subjective: Shilpa Erazo seen at bedside this morning. Her only complaint this morning is that she is tired. She denies any other complaints or any events overnight. She denies fever, chills, chest pain, dyspnea. - Objective MAR Reviewed: Yes Vital Signs & Weight: Vital Signs (12 hours) Temp Pulse Resp BP BP Pulse Ox 01/10/18 04:00 159/85 H 01/10/18 03:00 59 L 159/85 H 01/09/18 20:00 98.1 F 59 L 18 146/72 H 146/72 H 94 L I&O: 01/08/18 01/09/18 01/10/18 06:59 06:59 06:59 Intake Total 1000 720 Output Total 200 Balance 800 720 Result Diagrams: 01/06/18 05:30 01/06/18 05:30 <Castro Hearn - Last Filed: 01/10/18 08:01> - Objective Vital Signs & Weight: Vital Signs (12 hours) Temp Pulse Resp BP BP Pulse Ox 01/10/18 09:32 148/80 H 01/10/18 09:31 148/80 H 01/10/18 08:00 98.0 F 57 L 13 148/80 H 93 L 01/10/18 07:38 98.0 F 57 L 13 148/80 H 93 L 01/10/18 04:00 159/85 H 01/10/18 03:00 59 L 159/85 H I&O: 01/09/18 01/10/18 01/11/18 06:59 06:59 06:59 Intake Total 1000 920 Output Total 200 Balance 800 920 Result Diagrams: 01/06/18 05:30 01/06/18 05:30 <Marita Thurman - Last Filed: 01/10/18 12:21> Phys Exam - Physical Examination Constitutional: NAD HEENT: moist MMs, sclera anicteric Neck: no JVD, supple, full ROM Respiratory: no wheezing, no rales, no rhonchi, clear to auscultation bilateral Cardiovascular: RRR, no significant murmur Gastrointestinal: soft, non-tender, no distention Musculoskeletal: no edema, pulses present Neurological: non-focal, normal sensation Psychiatric: normal affect, A&O x 3 Skin: no rash <Castro Hearn - Last Filed: 01/10/18 08:01> Dx/Plan (1) Hypertensive emergency Code(s): I16.1 - HYPERTENSIVE EMERGENCY Status: Acute (2) Fracture of superior pubic ramus Code(s): S32.519A - FRACTURE OF SUPERIOR RIM OF UNSP PUBIS, INIT FOR CLOS FX Status: Acute QualifierTitle: Encounter type: initial encounter Fracture type: closed Laterality: right Qualified Code(s): S32.511A - Fracture of superior rim of right pubis, initial encounter for closed fracture (3) Physical deconditioning Code(s): R53.81 - OTHER MALAISE Status: Chronic (4) Protein calorie malnutrition Code(s): E46 - UNSPECIFIED PROTEIN-CALORIE MALNUTRITION Status: Chronic (5) Tobacco abuse Code(s): Z72.0 - TOBACCO USE Status: Chronic (6) Hyperglycemia Code(s): R73.9 - HYPERGLYCEMIA, UNSPECIFIED Status: Resolved (7) MONSERRAT (acute kidney injury) Code(s): N17.9 - ACUTE KIDNEY FAILURE, UNSPECIFIED Status: Resolved (8) Hypokalemia Code(s): E87.6 - HYPOKALEMIA Status: Resolved (9) Leukocytosis Code(s): D72.829 - ELEVATED WHITE BLOOD CELL COUNT, UNSPECIFIED Status: Resolved QualifierTitle: Leukocytosis type: unspecified Qualified Code(s): D72.829 - Elevated white blood cell count, unspecified (10) Alcohol abuse Code(s): F10.10 - ALCOHOL ABUSE, UNCOMPLICATED Status: Chronic - Plan Plan: 1) Hypertensive Emergency BP's initially in 220's/110's with an MONSERRAT. The BP's and MONSERRAT have improved. BP's have ranged from 146/72 to 171/85 in past 24 hours. -Will continue HCTZ 12.5 BID and lisinopril 30mg daily, and procardia 30 mg -continue to monitor 2) R Superior Pubic Rami Fracture R superior pubic rami fx. -Patient was declined from inpatient rehab, will attempt to get her accepted to SNF at [facility] -Fall precautions -pain meds prn 3) MONSERRAT Unknown baseline. Cr initially 1.19. Has improved s/p fluids. Likely superimposed on an undiagnosed CKD. -Continue to monitor outpatient as pt may have an element of CKD due to longstanding uncontrolled HTN. 4) Physical Deconditioning Patient is not at baseline physical status after her fall and is requiring a rolling walker to walk just a few steps. She has had decreased PO intake due to decreased appetite. -PT/OT -Plan for SNF at discharge -Ensure enlive TID 5) Hypokalemia -resolved 6) Hyperglycemia Hba1c 4.8 -The elevated sugar was likely a stress response to the fracture and pain. 7) Thyroid Nodules -thyr US wnl 8) HTN -uncontrolled -Lisinopril 30mg daily and HCTZ 12.5 mg BID, and procardia 30mg -Help pt establish with PCP 9) Tobacco Abuse -Tool Filer on cessation 10) EtOH Abuse -Tool Filer on cessation -ASE protocol -Thiamine, multivitamin, folic acid 11) Leukocytosis -resolved, was likely a stress response 12) Constipation -Miralax and docusate/senna <Castro Hearn - Last Filed: 01/10/18 08:01> Attending Addendum - Attending Addendum Date/Time: 01/10/18 1219 I personally evaluated the patient and discussed the management with Dr. Carvalho and Dr. Hearn I agree with the History, Examination, Assessment and Plan documented above with any addition or exceptions noted below. 72 yo female with hx of uncontrolled HTN admitted for HTN emergency. BP improved on 3 meds. Also found to have pelvic fracture after a fall. Ortho monitoring with nonsurgical methods. Awaiting CM dispo/placement prior to d/c. Once available stable to d/c to care facility. Will need rehab. ABrayMD <Marita Thurman - Last Filed: 01/10/18 12:21>
[2018-01-10] MEDS ORDERED: Senokot S 8.6-50 MG TAB PO SCH (09:00)
[2018-01-10] MEDS: Folic Acid 1 MG TAB PO SCH (09:30)
[2018-01-10] MEDS: Lisinopril 20 MG TAB PO SCH (09:31)
[2018-01-10] MEDS: Multivitamin W/ Minerals 1 TAB PO SCH (09:31)
[2018-01-10] MEDS: Hydrochlorothiazide 25 MG TAB PO SCH (09:31)
[2018-01-10] MEDS: Enoxaparin Sodium 30 MG/0.3 ML SYRINGE SC SCH (09:31)
[2018-01-10] MEDS: NIFEdipine XL 30 MG TAB PO SCH (09:32)
[2018-01-10] MEDS: Polyethylene Glycol 3350 17 GM Packet PO SCH (09:32)
[2018-01-10 12:29] VITALS: TEMP 98.9
[2018-01-10] MEDS: hydrALAZINE 20 MG/ML VIAL SLOW IVP PRN (15:48)
[2018-01-10 16:40] VITALS: BP 175/84
--- NOTE | 2018-01-11 09:24 | DIS-2 ---
DATE OF ADMISSION: 01/04/2018 DATE OF DISCHARGE: 01/10/2018 RESIDENT: Castro Hearn M.D. ADMITTING ATTENDING: Dwayne Pascual M.D. DISCHARGE ATTENDING: Dr. Marita Thurman. CONSULTATIONS: 1. Orthopedics, Dr. Justin Muir on 01/04/2018. 2. PT, OT, and case management on 01/04/2018. 3. Rehabilitation screening on 01/04/2018. 4. Speech evaluation and treat on 01/07/2018. PROCEDURES: 1. CT of the cervical spine on 01/03/2018; Impression: No evidence of cervical spine fracture. Inc identally noted is an enlarged heterogeneous thyroid with numerous hyperdense nodules. Consider elec tive thyroid ultrasound examination. 2. Pelvis x-ray on 01/03/2018; Impression: Evidence of a fracture involving the right superior alessandro s. 3. Brain CT on 01/03/2018: Impression: [id number] chronic ischemic white matter change. E vidence of lacunar infarcts in the deep white matter in both her cerebral hemispheres. No acute wilfred ical infarct. Acute lacunar infarct cannot be excluded. 4. Chest x-ray on 01/03/2018; Impression: No acute abnormality identified. 5. Thyroid ultrasound on 01/05/2018; Impression: Heterogeneous thyroid gland, no definite focal so lid or cystic masses seen. PRIMARY DIAGNOSIS: Hypertensive emergency. SECONDARY DIAGNOSES: 1. Right superior pubic ramus fracture. 2. Acute on chronic kidney disease. 3. Deconditioning. 4. Hypertension. 5. Tobacco abuse. 6. Alcohol abuse. 7. Hypokalemia. 8. Leukocytosis. DISCHARGE MEDICATIONS: New home medications: 1. Hydrochlorothiazide 12.5 mg p.o. b.i.d. 2. Tramadol hydrochloride 50 mg p.o. q.6 hours p.r.n. 3. Lisinopril 30 mg p.o. daily. 4. Multivitamin one-tab p.o. daily. 5. Nifedipine 30 mg p.o. daily. 6. Senna/docusate sodium 1 tab p.o. b.i.d. HISTORY OF PRESENT ILLNESS AND HOSPITAL COURSE: Shilpa Erazo is a 72-year-old female with past med ical history of untreated hypertension who presented to the ED after a fall. The patient fell due to tripping on a rug earlier on the day of admission. She reportedly fell on her tailbone and stated t hat she had pain in the region since the fall. She denies any headaches, but did report some mild ch est pain since arriving to the ED. No shortness of breath or vision changes. She reported that duri ng the fall, she did hit her head, but she did not have any confusion or dizziness afterwards. She h as noted increased memory loss over the past few months and she has noted decreased appetite today an d some nausea. She had not seen a doctor in the previous 4 years. In the ED, she was given Zosyn, R ocephin, hydralazine, and KCl 40 mEq. Patient's blood pressure was initially 226/110 with a heart ra te of 56. She was afebrile, satting 94% on room air. By that time, the patient was admitted, her bl ood pressure was 186/86. Initial labs showed white blood cell count of 22.4, potassium of 2.5, creat inine of 1.19, glucose 168. EKG showed normal sinus rhythm. Chest x-ray showed no acute process. C T of the head showed chronic ischemic white matter changes, old lacunar infarcts, and no acute cortic al infarct and pelvis x-ray showed right superior pubic ramus fracture. Patient was admitted for hyp ertensive emergency, hypokalemia, and acute right superior pelvic rami fracture as well as acute kidn ey injury versus chronic kidney disease. Patient was started on lisinopril initially, which was esca lated up throughout her admission, she was also started on hydrochlorothiazide the second day of her admission 12.5 mg b.i.d. Creatinine improved within the first couple of days. There were no signs o r symptoms or any lab indication of infection, so antibiotics were stopped during her admission. Blo od pressures remained high throughout her stay. Patient's blood pressures remained elevated for the first several days of her admission. Dr. Muir with orthopedics was called in the ED about the pu bic rami fracture and stated that patient will benefit from rehabilitation. PT and OT were consulted . The patient's hospital admission was prolonged secondary to difficulty with placement. Patient wa s not accepted for inpatient rehabilitation facility, but was eventually accepted to snf facility. Lisinopril was increased to 30 mg daily, hydrochlorothiazide was continued at 12.5 mg and on 01/09/2018, patient was started on Procardia 30 mg. Since the addition of the Procardia, patient' s blood pressure was much more improved ranging from over 140s/80s to 160s/80s. Patient was acceptin g to [facility] on the afternoon of 01/10/2018. Blood pressures are stabiliz ed at this point on current regimen of 30 mg of Procardia, 30 mg of lisinopril daily, and 12.5 mg of hydrochlorothiazide b.i.d. Acute kidney injury was resolved, hypokalemia was resolved. Hyperglycemi a was resolved and patient was cleared for discharge. DISPOSITION: Stable. Patient should do well. She continues her antihypertensives as prescribed and regain strength with rehab at snf facility. DISCHARGE INSTRUCTIONS: 1. Location: [facility]. 2. Diet: Heart healthy. 3. Activity: PT and OT as tolerated. 4. Follow up with primary care provider in [address] Mishra in 3-4 weeks with Ortho.
== END 2018-01-10 18:45 | DRG 305 ==
LOC: ERS 21:00 → 2NO 01-04 00:04 → OBSVTOIN 01-08 09:31
PROVIDERS: ADMIT Family Medicine; ATTEND Family Medicine
DX: I16.0 Hypertensive urgency (principal); S32.519A Fracture of superior rim of unspecified pubis, initial encounter for closed fracture; N17.9 Acute kidney failure, unspecified; E46 Unspecified protein-calorie malnutrition; E87.6 Hypokalemia; F10.10 Alcohol abuse, uncomplicated; R73.9 Hyperglycemia, unspecified; W01.0XXA Fall on same level from slipping, tripping and stumbling without subsequent striking against object, initial encounter; Z90.49 Acquired absence of other specified parts of digestive tract; Z90.710 Acquired absence of both cervix and uterus
CPT/HCPCS: 36415; 36416; 51702; 70450; 71045; 72125; 72170; 76536; 80048; 80053; 81003; 81015; 82553; 83036; 83735; 84134; 84443; 84484; 85025; 85610; 85730; 86850; 86900; 86901; 87086; 90471; 90670; 93005; 96365; 96375; 99406; A4216; G0009; G8978-GP-CM; G8979-GP-CL; G8987-GO-CL; G8988-GO-CK; G8996-GN-CJ; G8997-GN-CJ; J0131; J0360; J1644; J1650; J2543; J3480

== ENCOUNTER 2020-03-22 11:09 | Inpatient (IN) | payer MEDICARE, OTHER ==
--- NOTE | 2020-03-22 11:52 | RAD ---
RADIOGRAPH CHEST 1 VIEW: DATE: 03/22/2020 HISTORY: 75-year-old female with lethargy and altered mental status. Concern for aspiration. FINDINGS: The thoracic aorta is tortuous and ectatic. There is no evidence of airspace density, cardiomegaly, p ulmonary edema, or pneumothorax. The lateral costophrenic angles are not effaced. IMPRESSION: 1) No acute pulmonary findings. 2) ectasia of thoracic aorta.
--- NOTE | 2020-03-22 12:02 | CT ---
EXAM: CT brain without contrast HISTORY: Altered mental status and lethargy COMPARISON: 03/16/2020 TECHNIQUE: Multiple contiguous axial images were obtained and a CT of the brain without contrast. FINDINGS: There are scattered hypodensities in the subcortical and periventricular white matter consi stent with small vessel ischemic disease. A cavum septum pellucidum is incidentally seen. There is no evidence of hydrocephalus, intracranial hemorrhage, or extra-axial fluid collection. The calvarium and overlying soft tissues are unremarkable. The visualized paranasal sinuses and masto id air cells are well aerated. IMPRESSION: No evidence of acute intracranial abnormality
[2020-03-22 12:08] LABS: #Basophils 0.1 thou/uL (0.0-0.2); #Eosinphils 0.1 thou/uL (0.0-0.7); #Lymphocytes 2.1 thou/uL (1.20-3.40); #Monocytes 1.1 thou/uL (0.11-0.59); #Neutrophils 12.2 thou/uL (1.40-6.50); %Basophils 0.4 % (0.0-1.0); %Eosinophils 0.4 % (0.0-10.0); %Lymphocytes 13.7 % (21.0-51.0); %Monocytes 7.2 % (0.0-10.0); %Neutrophils 78.3 % (42.0-75.0); Hemoglobin 13.5 g/dL (12.0-16.0); Mean Corpuscular HGB CONC 32.8 g/dL (32.0-36.0); Mean Corpuscular Hemoglobin 32.8 pg (27.0-31.0); Mean Platelet Volume 8.7 fL (7.4-10.4); Platelet Count 232 thou/uL (130-400); RBC Distribution Width 14.9 % (11.5-14.5); Red Blood Cell (RBC) Count 4.11 mill/uL (4.20-5.40); White Blood Cell (WBC) Count 15.6 thou/uL (4.8-10.8)
[2020-03-22 12:20] LABS: ALT (SGPT) 29 U/L (8-55); AST (SGOT) 15 U/L (5-34); Albumin 3.4 g/dL (3.4-4.8); Alkaline Phosphatase 48 U/L (40-110); Anion Gap 17 mmol/L (10-20); BUN (Urea Nitrogen) 114 mg/dL (9.8-20.1); Bilirubin, Total 0.5 mg/dL (0.2-1.2); Calc. Creatinine Clearance 0 mL/min (70-130); Calcium 8.4 mg/dL (7.8-10.44); Carbon Dioxide 17 mmol/L (23-31); Chloride 137 mmol/L (98-107); Estimated GFR-MDRD 18; Globulin 1.8 g/dL (2.4-3.5); Glucose 127 mg/dL (83-110); Lipase 40 U/L (8-78); Potassium 4.1 mmol/L (3.5-5.1); Protein, Total 5.2 g/dL (6.0-8.3); Sodium 167 mmol/L (136-145)
[2020-03-22 12:31] LABS: Bacteria/HPF 4+ HPF (None Seen); Bilirubin Negative (Negative); Blood, Urine Negative (Negative); Clarity Turbid (Clear); Glucose, Urine (Dipstick) Normal (Negative); Ketone, Urine Negative (Negative); Leukocyte 250 Leu/uL (Negative); Nitrite 1+ (Negative); Protein, Urine (Dipstick) 20 mg/dL (Neg-Trace); RBC/HPF None Seen HPF (0-3); Specific Gravity, Urine 1.022 (1.002-1.036); Squamous Epithelial 0-3 HPF (0-3); Urobilinogen Normal mg/dL (Less than 2)
[2020-03-22 12:34] LABS: CKMB 5.1 ng/mL (0-6.6)
[2020-03-22] MEDS ORDERED: cefTRIAXone\\ROCEPHIN 2 GM VIAL ONE (12:44)
[2020-03-22] MEDS ORDERED: Acetaminophen 325 MG TAB PO PRN (14:33)
[2020-03-22] MEDS ORDERED: Ondansetron ODT 4 MG TAB PO PRN (14:33)
[2020-03-22] MEDS ORDERED: hydrALAZINE 20 MG/ML VIAL SLOW IVP PRN (15:39)
--- NOTE | 2020-03-22 16:34 | HP ---
CHIEF COMPLAINT: Altered mentation. HISTORY OF PRESENT ILLNESS: A 75-year-old shelter resident, alert and oriented x2, at baseline, mostly nonverbal, presenting with severe dehydration and tachycardia. Her sodium was 167 and creatinine 2.7 and abnormal troponin. UA suggestive of urinary tract infection. Given her severe hypernatremia, Dr. Borja has been consulted by the ER physician. Starting D5W and check BMP panel every 4 hours has been arranged. The patient will be admitted in the IMCU. No family at bedside. History is quite limited. REVIEW OF SYSTEMS: Not obtainable. PAST MEDICAL HISTORY: History of dementia and hypertension. ALLERGIES: NO KNOWN DRUG ALLERGY. MEDICATIONS: 1. Folic acid 1 mg daily. 2. Lisinopril 40 mg daily. 3. Thiamine 100 mg daily. 4. Megestrol 400 mg twice a day. 5. Hydralazine 50 mg three times a day. 6. Amlodipine 10 mg daily. 7. Multivitamin daily. SOCIAL HISTORY: Not obtained. FAMILY HISTORY: Not obtainable. PHYSICAL EXAMINATION: VITAL SIGNS: Blood pressure 92/66, pulse 79, saturating 99% on room air, and temperature 97.9. GENERAL: The patient is tracking us while talking, but she is not verbal. She looks very fragile and severe muscular atrophy in both upper and lower extremities. On the right arm, almost like decortication. HEART: She is tachycardic with regular rhythm. LUNGS: With anterior auscultation, did not appreciate any abnormal sounds. ABDOMEN: Good bowel sounds. Soft and nontender. NEUROLOGIC: Again, she is severely deconditioned, fragile lady. Cranial nerves 2 through 12 seem to be intact grossly. Strength is not evaluated. SKIN: She has mild ecchymosis on her upper right hand. Other than that, no significant edema or rash noted. LABORATORY DATA: Her EKG showed normal sinus rhythm at 79 beats per minute. UA shows signs of UTI with leukocyte esterase and nitrite positive as well as bacteria 4+. IMPRESSION AND PLAN: This is a 75-year-old shelter resident, presenting with. 1. Severe dehydration with acute kidney injury 2. Hypernatremia due to lack of access to free water. 3. Abnormal troponin/metabolic mismatch type 2 demand ischemia. 4. Urinary tract infection. 5. Metabolic encephalopathy secondary to hypernatremia as well as urinary tract infection with underlying dementia. 6. Dementia 7. Leukocytosis due to UTI and stress demargination. The patient will be admitted in the IMCU given her several acuity. However the patient is not septic. She has no fever. Her presentation is mostly severe dehydration, electrolyte abnormality, as well as urinary tract infection. She got NS fluid. We will continue with D5W per Renal recommendation. Follow up with blood and urine ulture results. Continue empiric antibiotic with ceftriaxone until culture results back. Rest of the management based on clinical course. Job ID: [id number] [facility]
--- NOTE | 2020-03-22 16:42 | CON ---
DATE OF CONSULTATION: REASON FOR CONSULTATION: Hypernatremia and elevated creatinine. HISTORY OF PRESENT ILLNESS: This is a 75-year-old female, who [facility] with poor p.o. intake and low blood pressure. The patient's creatinine was elevated and sodium was 167. She had altered mental status. The patient can give no further history. PAST MEDICAL HISTORY: Hypertension, intracerebral hemorrhage dysphagia, dementia. SOCIOECONOMIC HISTORY: No alcohol or drug abuse. FAMILY HISTORY: Negative for ESRD. ALLERGIES: REVIEWED. HOME MEDICATIONS: List reviewed. HOSPITAL MEDICATIONS: List reviewed. REVIEW OF SYSTEMS: A 15-point review of system was performed and negative except for positives noted above. HEENT: Eyes intact, no diplopia. Ears: No hearing loss or earache. Nose: No discharge or bleeding. Chest: No cough or phlegm. Abdomen: No nausea or vomiting. Genitourinary: No hematuria. No Zabala catheter. Musculoskeletal: No low back pain. No joint swelling or pain. Neurological: No syncope. No seizures. Skin: No complaints of rash or itching. Psychiatric: No depression. Constitutional: No weight loss or loss of appetite. PHYSICAL EXAMINATION: On examination, the patient is resting. General: The patient is awake and alert. Vital Signs: Afebrile, pulse 75, breathing at 16, blood pressure was . HEENT: Head normocephalic and atraumatic. Eyes intact, no ulcers. Nose intact, no ulcers. Ears intact, no ulcers. Neck: Supple. No JVD. Chest: Symmetrical and clear. Cardiovascular: Shows S1 and S2, no rub, no murmur. Gastrointestinal: Abdomen is soft, bowel sounds positive. Extremities: Show no edema or ulcers. Skin: Shows no rash or petechiae. Musculoskeletal: Shows no joint swelling or stiffness. Genitourinary: Shows no Zabala or CVA tenderness. Neurologic: The patient is nonverbal. LABORATORY DATA: Reviewed. ASSESSMENT AND PLAN: 1. Acute kidney injury with chronic kidney disease, most likely decreased effective arterial blood volume. Hold ILIANA. 2. Hypernatremia. Start D5 water. Check sodium every 4 to 6 hours. 3. Metabolic acidosis. Recommend GI evaluation. 4. Anemia, stable. Medication based on GFR, appropriate. 5. Proteinuria, negligible. Medication based on GFR appropriate. Avoid ILIANA. No indication for dialysis. We will order renal imaging. Job ID: [id number]
[2020-03-22 17:02] LABS: Anion Gap 16 mmol/L (10-20); BUN (Urea Nitrogen) 100 mg/dL (9.8-20.1); Calc. Creatinine Clearance 0 mL/min (70-130); Calcium 8.1 mg/dL (7.8-10.44); Carbon Dioxide 14 mmol/L (23-31); Chloride 138 mmol/L (98-107); Estimated GFR-MDRD 21; Glucose 116 mg/dL (83-110); Sodium 164 mmol/L (136-145)
[2020-03-22 17:21] LABS: CKMB 5.8 ng/mL (0-6.6)
--- NOTE | 2020-03-22 19:12 | ULT ---
RENAL ULTRASOUND: 03/22/20 PROVIDED CLINICAL HISTORY: Acute kidney injury. FINDINGS: The right kidney measures about 8.8 x 3.6 x 3.7 cm and demonstrates no evidence for hydronephrosis or mass. Left kidney measures about 8.3 x 3.6 x 3.6 cm and demonstrates no evidence for hydronephrosis or mass . There is an echogenic focus involving the left kidney measuring about 9 mm that could reflect a cem culus. The urinary bladder appears unremarkable. IMPRESSION: No evidence for hydronephrosis. POS: KRUPA
[2020-03-23 00:20] LABS: CKMB 7.1 ng/mL (0-6.6)
[2020-03-23 02:47] LABS: Potassium 4.1 mmol/L (3.5-5.1)
[2020-03-23 02:48] LABS: Calcium 8.3 mg/dL (7.8-10.44); Glucose 94 mg/dL (83-110)
[2020-03-23 02:50] LABS: Anion Gap 19 mmol/L (10-20)
[2020-03-23 02:52] LABS: Calc. Creatinine Clearance 24 mL/min (70-130); Estimated GFR-MDRD 34
[2020-03-23 02:53] LABS: BUN (Urea Nitrogen) 80 mg/dL (9.8-20.1)
[2020-03-23 02:54] LABS: Carbon Dioxide 9 mmol/L (23-31); Chloride 138 mmol/L (98-107); Sodium 162 mmol/L (136-145)
[2020-03-23 03:40] LABS: Anion Gap 17 mmol/L (10-20); BUN (Urea Nitrogen) 81 mg/dL (9.8-20.1); Calc. Creatinine Clearance 24 mL/min (70-130); Calcium 8.4 mg/dL (7.8-10.44); Carbon Dioxide 13 mmol/L (23-31); Chloride 136 mmol/L (98-107); Estimated GFR-MDRD 34; Glucose 104 mg/dL (83-110); Potassium 3.8 mmol/L (3.5-5.1); Sodium 162 mmol/L (136-145)
[2020-03-23 03:40] LABS: CKMB 7.4 ng/mL (0-6.6)
[2020-03-23 03:54] LABS: #Basophils 0.1 thou/uL (0.0-0.2); #Eosinphils 0.1 thou/uL (0.0-0.7); #Lymphocytes 2.9 thou/uL (1.20-3.40); #Monocytes 1.4 thou/uL (0.11-0.59); #Neutrophils 10.8 thou/uL (1.40-6.50); %Basophils 0.5 % (0.0-1.0); %Eosinophils 0.6 % (0.0-10.0); %Lymphocytes 18.9 % (21.0-51.0); %Monocytes 9.2 % (0.0-10.0); %Neutrophils 70.8 % (42.0-75.0); Hemoglobin 14.1 g/dL (12.0-16.0); Mean Corpuscular HGB CONC 32.5 g/dL (32.0-36.0); Mean Corpuscular Hemoglobin 32.8 pg (27.0-31.0); Mean Platelet Volume 8.6 fL (7.4-10.4); Platelet Count 168 thou/uL (130-400); RBC Distribution Width 14.6 % (11.5-14.5); White Blood Cell (WBC) Count 15.3 thou/uL (4.8-10.8)
[2020-03-23] MEDS: Senokot S 8.6-50 MG TAB PO SCH ×3 (04:23→22:21)
[2020-03-23] MEDS: Heparin 5,000 UNITS/ML VIAL SC SCH ×3 (04:24→19:55)
[2020-03-23 06:53] LABS: Anion Gap 13 mmol/L (10-20); BUN (Urea Nitrogen) 69 mg/dL (9.8-20.1); Calc. Creatinine Clearance 29 mL/min (70-130); Calcium 8.2 mg/dL (7.8-10.44); Carbon Dioxide 15 mmol/L (23-31); Estimated GFR-MDRD 41; Glucose 96 mg/dL (83-110); Potassium 3.7 mmol/L (3.5-5.1); Sodium 159 mmol/L (136-145)
[2020-03-23 06:59] LABS: Chloride 135 mmol/L (98-107)
[2020-03-23 07:22] LABS: CKMB 7.8 ng/mL (0-6.6)
[2020-03-23] MEDS: NIFEdipine XL 30 MG TAB PO SCH (09:22)
[2020-03-23] MEDS: Dextrose 5% in Water 1,000 ML IV SCH ×2 (10:44→20:42)
--- NOTE | 2020-03-23 12:37 | PDOC.HOSPP ---
- Subjective Encounter Date: 03/23/20 Encounter Time: 12:35 Subjective: Ms. Erazo was seen today in follow-up of dehydration and hypernatremia. She is awake, but unable to express her concerns. She will look at you and make some vocal sounds, but does not formulate any words. - Objective Vital Signs & Weight: Vital Signs (12 hours) Temp 03/23/20 11:30 97.3 F L 03/23/20 07:28 96.5 F L 03/23/20 04:16 96.9 F L Weight Admit Weight 101 lb 3.2 oz Weight 103 lb 3.2 oz Most Recent Monitor Data Heart Rate from ECG 50 NIBP 119/80 NIBP BP-Mean 93 Respiration from ECG 19 SpO2 99 Result Diagrams: 03/23/20 02:59 03/23/20 06:10 Hospitalist ROS - Medication Medications: Active Medications Generic Name Dose Route Start Last Admin Trade Name Freq PRN Reason Stop Dose Admin Heparin Sodium (Porcine) 5,000 units 03/22/20 21:00 03/23/20 10:44 Heparin SC Not Given BID TRACY Dextrose/Water 1,000 mls @ 100 mls/hr 03/23/20 09:45 03/23/20 10:44 D5w IV 1,000 mls .Q10H TRACY Administration Nifedipine 30 mg 03/23/20 09:00 03/23/20 09:22 Procardia Xl PO Not Given DAILY TRACY Senna/Docusate Sodium 1 tab 03/22/20 21:00 03/23/20 09:22 Senokot S PO Not Given BID TRACY - Exam General Appearance: ill appearing General - other findings: frail and thin Eye: PERRL, anicteric sclera Heart: RRR, no murmur, no gallops, no rubs, normal peripheral pulses Respiratory: CTAB, no wheezes, no rales, no ronchi, normal chest expansion Gastrointestinal: soft, non-tender, non-distended, normal bowel sounds, no palpable masses Extremities: no cyanosis, no clubbing, no edema Hosp A/P (1) Hypernatremia Code(s): E87.0 - HYPEROSMOLALITY AND HYPERNATREMIA Status: Acute (2) UTI (urinary tract infection) Status: Acute (3) Physical deconditioning Code(s): R53.81 - OTHER MALAISE Status: Chronic (4) Protein calorie malnutrition Code(s): E46 - UNSPECIFIED PROTEIN-CALORIE MALNUTRITION Status: Chronic (5) MONSERRAT (acute kidney injury) Code(s): N17.9 - ACUTE KIDNEY FAILURE, UNSPECIFIED Status: Acute - Plan * Hypernatremia- due to dehydration- continue free water replacement with D5W * Acute kidney injury- continue IV hydration * UTI- urine culture is growing E. Coli- will continue Rocephin pending final culture results * HTN- blood pressure is stable- continue to hold Lisinopril * Her overall prognosis is guarded due to chronic malnutrition, and dementia. Her code status was verified as DNA, and will change the status in the chart to reflect this.
--- NOTE | 2020-03-23 13:22 | PRG ---
DATE OF SERVICE: 03/23/2020 SUBJECTIVE: A 75-year-old female being seen for acute kidney injury. The patient is nonverbal. PHYSICAL EXAMINATION: General: The patient is resting. Vital Signs: Afebrile, pulse 95, breathing at 16, blood pressure 119/82. HEENT: Head normocephalic and atraumatic. Eyes intact, no ulcers. Nose intact, no ulcers. Ears intact, no ulcers. Neck: Supple. No JVD. Chest: Symmetrical and clear. Cardiovascular: Shows S1 and S2, no rub, no murmur. Gastrointestinal: Abdomen is soft, bowel sounds positive. Extremities: Show no edema or ulcers. Skin: Shows no rash or petechiae. Musculoskeletal: Shows no joint swelling or stiffness. Genitourinary: Shows no Zabala or CVA tenderness. Neurologic: Motor intact. Cranial nerves intact. LABORATORY DATA: Hemoglobin 14, sodium 159. ASSESSMENT AND PLAN: 1. Hypernatremia improved. 2. Acute kidney injury, improved. 3. Hypertension, stable. 4. no indication for dialysis. Continue gentle hydration. Overall prognosis is poor. Recommend palliative care consult. Job ID: [id number]
[2020-03-23] MEDS: cefTRIAXone\\ROCEPHIN 1 GM in Sodium Chloride 0.9% 100 ML IVPB SCH (14:09)
[2020-03-23 16:01] LABS: SARS-CoV-2 MS2 Positive; SARS-CoV-2 N Gene Negative; SARS-CoV-2 S Gene Negative; SARS-CoV-2 by NAA Not Detected (NotDetected); SARS-CoV-2 orf1ab Negative
--- NOTE | 2020-03-23 18:37 | CON ---
DATE OF CONSULTATION: HISTORY OF PRESENT ILLNESS: Shilpa Erazo is a 75-year-old female who was admitted to the hospital yesterday with altered mental status from the residential, still lethargic, encephalopathic. She had multiple abnormalities on a chemistry. She is apparently a DNR, unable to get much history from the patient, still encephalopathic. PAST MEDICAL HISTORY: Pertinent for hypertension, previous CVA, weakness, and dementia. PREVIOUS SURGERIES: Hysterectomy, cholecystectomy, and abdominal surgery. SOCIAL HISTORY: Apparently history of drinking and smoking in the past. REVIEW OF SYSTEMS: Otherwise, unobtainable. PHYSICAL EXAMINATION: VITAL SIGNS: Temperature is 98.5, blood pressure 119/80, . CHEST: No wheezing. No crackles. CARDIAC: Normal S1, S2. No gallops. ABDOMEN: Soft. LABORATORY DATA: Chest x-ray is normal. CT brain is normal. White count 15,000. H and H are stable. Platelet count is normal. Admission sodium was 162, this morning 159, BUN and creatinine are 60 and 1.29, most of this appears to be prerenal. Urine was normal. Urine shows Escherichia coli. ASSESSMENT: Metabolic encephalopathy; renal failure, prerenal; advanced age; smoker history. PLAN: She has been hydrated with D5. Broad-spectrum antibiotics on board. Supportive care. Prognosis is grave. She is probably going to need Speech to evaluate her for her p.o. intake at some point. We will follow while in the MICU. This is a consultation note, 70 minutes of which 50% of direct patient care. Job ID: [id number]
[2020-03-23 20:15] LABS: Anion Gap 10 mmol/L (10-20); BUN (Urea Nitrogen) 47 mg/dL (9.8-20.1); Calc. Creatinine Clearance 41 mL/min (70-130); Carbon Dioxide 18 mmol/L (23-31); Estimated GFR-MDRD 61; Glucose 113 mg/dL (83-110); Potassium 3.6 mmol/L (3.5-5.1); Sodium 150 mmol/L (136-145)
[2020-03-23 20:21] LABS: Chloride 126 mmol/L (98-107)
[2020-03-24 04:13] LABS: Anion Gap 13 mmol/L (10-20); BUN (Urea Nitrogen) 38 mg/dL (9.8-20.1); Calc. Creatinine Clearance 47 mL/min (70-130); Calcium 7.9 mg/dL (7.8-10.44); Carbon Dioxide 15 mmol/L (23-31); Chloride 121 mmol/L (98-107); Estimated GFR-MDRD 72; Glucose 107 mg/dL (83-110); Potassium 3.5 mmol/L (3.5-5.1); Sodium 145 mmol/L (136-145)
[2020-03-24] MEDS: Dextrose 5% in Water 1,000 ML IV SCH (06:15)
[2020-03-24] MEDS: Heparin 5,000 UNITS/ML VIAL SC SCH ×2 (08:19→20:23)
[2020-03-24] MEDS: NIFEdipine XL 30 MG TAB PO SCH (08:45)
[2020-03-24] MEDS: Senokot S 8.6-50 MG TAB PO SCH ×2 (08:45→20:20)
--- NOTE | 2020-03-24 11:19 | PDOC.HOSPP ---
- Subjective Encounter Date: 03/24/20 Encounter Time: 11:18 Subjective: Ms. Erazo was seen today in follow-up of dehydration and hypernatremia. She is essentially non-verbal. No complaints voiced by staff. - Objective Vital Signs & Weight: Vital Signs (12 hours) Temp 03/24/20 11:13 97.2 F L 03/24/20 07:11 97.4 F L Weight Admit Weight 101 lb 3.2 oz Weight 109 lb 4.8 oz Most Recent Monitor Data Heart Rate from ECG 57 NIBP 112/77 NIBP BP-Mean 88 Respiration from ECG 20 SpO2 100 I&O: 03/23/20 03/24/20 03/25/20 06:59 06:59 06:59 Output Total 500 Balance -500 Result Diagrams: 03/23/20 02:59 03/24/20 03:03 Hospitalist ROS - Medication Medications: Active Medications Generic Name Dose Route Start Last Admin Trade Name Freq PRN Reason Stop Dose Admin Heparin Sodium (Porcine) 5,000 units 03/22/20 21:00 03/24/20 08:19 Heparin SC 5,000 units BID TRACY Administration Ceftriaxone Sodium 1 gm/ 100 mls @ 200 mls/hr 03/23/20 13:00 03/23/20 14:09 Sodium Chloride IVPB 100 mls Q24HR TRACY Administration Dextrose/Water 1,000 mls @ 100 mls/hr 03/23/20 09:45 03/24/20 06:15 D5w IV 1,000 mls .Q10H TRACY Administration Nifedipine 30 mg 03/23/20 09:00 03/24/20 08:45 Procardia Xl PO Not Given DAILY TRACY Senna/Docusate Sodium 1 tab 03/22/20 21:00 03/24/20 08:45 Senokot S PO Not Given BID TRACY Sodium Chloride 10 ml 03/23/20 21:00 03/24/20 08:19 Flush - Normal Saline IVF 10 ml Q12HR TRACY Administration - Exam Eye: PERRL, anicteric sclera Heart: RRR, no murmur, no gallops, no rubs, normal peripheral pulses Respiratory: CTAB (with occasional rhonchi), no wheezes, no rales Gastrointestinal: soft, non-tender, non-distended, normal bowel sounds, no palpable masses Extremities: no cyanosis, no edema Hosp A/P (1) Hypernatremia Code(s): E87.0 - HYPEROSMOLALITY AND HYPERNATREMIA Status: Acute (2) UTI (urinary tract infection) Status: Acute (3) Physical deconditioning Code(s): R53.81 - OTHER MALAISE Status: Chronic (4) Protein calorie malnutrition Code(s): E46 - UNSPECIFIED PROTEIN-CALORIE MALNUTRITION Status: Chronic (5) MONSERRAT (acute kidney injury) Code(s): N17.9 - ACUTE KIDNEY FAILURE, UNSPECIFIED Status: Acute - Plan * Hypernatremia- improving * Acute kidney injury- continue IV hydration * UTI- urine culture is growing E. Coli- will continue Rocephin still awaiting sensitivities * HTN- blood pressure is stable- Lisinopril is on hold * Her overall prognosis is guarded due to chronic malnutrition, and dementia. Will need to discuss with family the goals of care going forward. She is still not safe for swallowing, and this is likely to be a recurrent problem.
--- NOTE | 2020-03-24 11:28 | PRG ---
DATE OF SERVICE: 03/24/2020 SUBJECTIVE: Shilpa Erazo is a 75-year-old female, remains in the MICU, pretty much obtunded. No verbal response. OBJECTIVE: VITAL SIGNS: Blood pressure 122/70, pulse 52, sats 100%, and respirations 20. GENERAL: Cachectic. CHEST: No wheezing, no crackles. CARDIAC: Normal S1 and S2. No gallops. ABDOMEN: No masses. LABORATORY DATA: Her sodium is down to 145, chloride 125, BUN 38. Urine, Escherichia coli. Azotemia, prerenal, encephalopathy, dementia. She is a DNR. Continue slow hydration. Antibiotics. Prognosis is grave. Job ID: [id number]
[2020-03-24] MEDS ORDERED: Dextrose 5% in Water 1,000 ML IV SCH (12:00)
[2020-03-24] MEDS: cefTRIAXone\\ROCEPHIN 1 GM in Sodium Chloride 0.9% 100 ML IVPB SCH (12:41)
[2020-03-24] MEDS: Sodium Chloride 0.9% 1,000 ML IV SCH (12:41)
--- NOTE | 2020-03-24 14:40 | PRG ---
DATE OF SERVICE: 03/24/2020 SUBJECTIVE: A 75-year-old female, being seen for acute kidney injury and hypernatremia. The patient is nonverbal. On exam, the patient is resting PHYSICAL EXAMINATION: General: The patient is awake and alert. Vital Signs: Afebrile, pulse 59, breathing at 16, blood pressure 102/60. HEENT: Head normocephalic and atraumatic. Eyes intact, no ulcers. Nose intact, no ulcers. Ears intact, no ulcers. Neck: Supple. No JVD. Chest: Symmetrical and clear. Cardiovascular: Shows S1 and S2, no rub, no murmur. Gastrointestinal: Abdomen is soft, bowel sounds positive. Extremities: Show no edema or ulcers. Skin: Shows no rash or petechiae. Musculoskeletal: Shows no joint swelling or stiffness. Genitourinary: Shows no Zabala or CVA tenderness. Neurologic: Motor intact. Cranial nerves intact. The patient is resting and nonverbal. LABORATORY DATA: Showed hemoglobin 14.1. Labs showed creatinine 0.7, sodium 145. ASSESSMENT AND PLAN: 1. Acute kidney injury, stable. 2. Hypertension, stable. 3. Anemia, stable. 4. Hypernatremia, resolved. 5. Metabolic acidosis. Continue sodium bicarbonate. I will sign off on this patient. Please reconsult as needed. Prognosis is poor. Recommend Palliative consultation. Job ID: [id number]
[2020-03-25 04:27] LABS: #Basophils 0.1 thou/uL (0.0-0.2); #Eosinphils 0.3 thou/uL (0.0-0.7); #Lymphocytes 3.1 thou/uL (1.20-3.40); #Neutrophils 8.2 thou/uL (1.40-6.50); %Basophils 0.6 % (0.0-1.0); %Eosinophils 2.1 % (0.0-10.0); %Lymphocytes 24.4 % (21.0-51.0); %Neutrophils 64.9 % (42.0-75.0); Hemoglobin 12.6 g/dL (12.0-16.0); Mean Corpuscular HGB CONC 32.5 g/dL (32.0-36.0); Mean Corpuscular Hemoglobin 31.4 pg (27.0-31.0); Mean Corpuscular Volume 96.6 fL (78.0-98.0); Mean Platelet Volume 9.1 fL (7.4-10.4); Platelet Count 150 thou/uL (130-400); RBC Distribution Width 13.9 % (11.5-14.5); Red Blood Cell (RBC) Count 4.01 mill/uL (4.20-5.40); White Blood Cell (WBC) Count 12.6 thou/uL (4.8-10.8)
[2020-03-25 04:48] LABS: Anion Gap 16 mmol/L (10-20); BUN (Urea Nitrogen) 21 mg/dL (9.8-20.1); Calc. Creatinine Clearance 54 mL/min (70-130); Calcium 8.3 mg/dL (7.8-10.44); Carbon Dioxide 13 mmol/L (23-31); Chloride 117 mmol/L (98-107); Estimated GFR-MDRD 79; Potassium 3.5 mmol/L (3.5-5.1); Sodium 142 mmol/L (136-145)
[2020-03-25 05:04] LABS: Glucose 57 mg/dL (83-110)
[2020-03-25] MEDS ORDERED: Dextrose 50% Abboject 50 ML SYRINGE ONE (05:07)
[2020-03-25] MEDS: Senokot S 8.6-50 MG TAB PO SCH ×2 (08:29→21:55)
[2020-03-25] MEDS: NIFEdipine XL 30 MG TAB PO SCH (08:29)
[2020-03-25] MEDS: Heparin 5,000 UNITS/ML VIAL SC SCH ×2 (08:53→21:55)
--- NOTE | 2020-03-25 09:37 | PDOC.HOSPP ---
- Subjective Encounter Date: 03/25/20 Encounter Time: 09:36 Subjective: Ms. Erazo was seen today in follow-up of dehydration and hypernatremia. She seems a bit more aware. She was able to tell me she is in a "Hosp" Whenasked about the year she said " [age]". - Objective Vital Signs & Weight: Vital Signs (12 hours) Temp 03/25/20 07:56 97.4 F L 03/25/20 03:44 97.3 F L 03/24/20 23:56 97.8 F Weight Admit Weight 101 lb 3.2 oz Weight 106 lb 14.4 oz Most Recent Monitor Data Heart Rate from ECG 59 NIBP 102/66 NIBP BP-Mean 78 Respiration from ECG 23 SpO2 100 I&O: 03/24/20 03/25/20 03/26/20 06:59 06:59 06:59 Intake Total 1016 Output Total 500 800 Balance -500 216 Result Diagrams: 03/25/20 03:30 03/25/20 03:30 Additional Labs: Accuchecks 03/25/20 06:16 POC Glucose 187 H Hospitalist ROS - Medication Medications: Active Medications Generic Name Dose Route Start Last Admin Trade Name Freq PRN Reason Stop Dose Admin Heparin Sodium (Porcine) 5,000 units 03/22/20 21:00 03/25/20 08:53 Heparin SC 5,000 units BID TRACY Administration Ceftriaxone Sodium 1 gm/ 100 mls @ 200 mls/hr 03/23/20 13:00 03/24/20 12:41 Sodium Chloride IVPB 100 mls Q24HR TRACY Administration Sodium Chloride 1,000 mls @ 30 mls/hr 03/24/20 12:45 03/24/20 12:41 Normal Saline 0.9% IV 1,000 mls .Q24H TRACY Administration Nifedipine 30 mg 03/23/20 09:00 03/25/20 08:29 Procardia Xl PO Not Given DAILY TRACY Senna/Docusate Sodium 1 tab 03/22/20 21:00 03/25/20 08:29 Senokot S PO Not Given BID TRACY Sodium Chloride 10 ml 03/23/20 21:00 03/25/20 08:50 Flush - Normal Saline IVF Not Given Q12HR TRACY - Exam Eye: PERRL, anicteric sclera Heart: RRR, no murmur, no gallops, no rubs, normal peripheral pulses Respiratory: CTAB, no wheezes, no rales, no ronchi, normal chest expansion Gastrointestinal: soft, non-tender, non-distended, normal bowel sounds, no palpable masses, no hepatomegaly Extremities: no cyanosis, no edema Hosp A/P (1) Hypernatremia Code(s): E87.0 - HYPEROSMOLALITY AND HYPERNATREMIA Status: Acute (2) UTI (urinary tract infection) Status: Acute (3) Physical deconditioning Code(s): R53.81 - OTHER MALAISE Status: Chronic (4) Protein calorie malnutrition Code(s): E46 - UNSPECIFIED PROTEIN-CALORIE MALNUTRITION Status: Chronic (5) MONSERRAT (acute kidney injury) Code(s): N17.9 - ACUTE KIDNEY FAILURE, UNSPECIFIED Status: Acute - Plan * Hypernatremia- resolved * Acute kidney injury- improved * UTI- urine culture is growing E. Coli- sensitive to Cephalosporins- will continue Rocephin, given she does not have a reliable swallow. * HTN- blood pressure is stable- Continue to hold Lisinopril * Her overall prognosis is guarded due to chronic malnutrition, and dementia. * Will see if Speech therapy can re-evaluate her , as she seems slightly improved. * I called her son Tyrone, but he was in [place], and the cell dental receptionist was poor. Will try again later.
--- NOTE | 2020-03-25 10:03 | PRG ---
DATE OF SERVICE: 03/25/2020 SUBJECTIVE: This morning, she is more responsive, though still encephalopathic. OBJECTIVE: VITAL SIGNS: Temperature 97, pulse 59, blood pressure , saturations 100%. CHEST: No wheezing, no crackles. CARDIAC: Normal S1, S2. ABDOMEN: No masses. LABORATORY DATA: White count 12,000. Lytes are normal. IMPRESSION: Respiratory failure, encephalopathy, urinary tract infection. PLAN: Pulmonary is going to follow up patient while she is in the MICU. Speech to see the patient. Otherwise, continue PT, supportive care. Job ID: [id number]
[2020-03-25] MEDS: cefTRIAXone\\ROCEPHIN 1 GM in Sodium Chloride 0.9% 100 ML IVPB SCH (12:07)
[2020-03-25] MEDS: Sodium Chloride 0.9% 1,000 ML IV SCH (17:12)
[2020-03-26] MEDS: Sodium Chloride 0.9% 1,000 ML IV SCH (02:49)
[2020-03-26] MEDS: Senokot S 8.6-50 MG TAB PO SCH ×2 (08:31→21:50)
[2020-03-26] MEDS: NIFEdipine XL 30 MG TAB PO SCH (08:32)
[2020-03-26] MEDS: Heparin 5,000 UNITS/ML VIAL SC SCH ×2 (08:33→21:51)
--- NOTE | 2020-03-26 10:02 | PRG ---
DATE OF SERVICE: SUBJECTIVE: Shilpa Erazo was a DNR, this morning remains encephalopathic. OBJECTIVE: VITAL SIGNS: Temperature 98, pulse 78, respirations 16, sats 100% on room air, blood pressure 129/84. CHEST: Anterior rhonchi without any wheezing. CARDIAC: Normal S1, S2. No gallops. ABDOMEN: No masses. ASSESSMENT AND PLAN: 1. Metabolic encephalopathy, renal failure, azotemia, prerenal. 2. Severe deconditioning, urosepsis. She appears to be relatively stable on present treatment, eventually placement. Pulmonary/Critical Care will follow at a distance. Job ID: [id number]
[2020-03-26 12:36] VITALS: BMI 20.5
--- NOTE | 2020-03-26 13:05 | PDOC.PALCO ---
Palliative Care Consult - Consult Details Requesting Physician: Dr Borja, confirmed with Dr Le Reason for Consult: goals of care, assistance with communication prognosis/ disease - Pertinent HPI 75 year old female who is a resident at [facility], baseline of orientation x2, Assist with ADL, has been bedbound. She presented to the emergency room with increase of altered mentation from baseline. Admitted for dehydration and tachycardia with suspected UTI, hypernatremia. Admitted to IMCU for further evaluation and medical management. - Pertinent PMH Hypertension, dementia - Social History Smoking Status: Former smoker Smoking: cigarettes Alcohol Use: none Drug Use History: none Living Situation: [facility] - Medications MAR Reviewed: Yes - Allergies Allergies/Adverse Reactions: Allergies Allergy/AdvReac Type Severity Reaction Status Date / Time No Known Allergies Allergy Unverified 01/04/18 02:09 - Subjective Emaciated, muscle atrophy. Opens eyes, one word response, no participation in exam. - ROS Non Response: due to mental status - Objective Vital Signs: Vital Signs - Most Recent Temp Pulse Resp BP Pulse Ox 98.7 F 78 16 129/84 98 03/26/20 07:26 03/26/20 07:26 03/26/20 07:26 03/26/20 07:26 03/26/20 07:26 Palliative Performance Scale: 20 - Physical Exam Constitutional: cachectic, emaciated, ill appearing Respiratory: no rhonchi, no wheezing Cardiovascular: RRR Gastrointestinal: non-tender, incontinent Musculoskeletal: no clubbing, pulses present Neurology: moves all 4 limbs Skin: fragile Psychiatric: flat affect Deviation from normal: Alert, unabel to fully determine orientation - Problem List (1) Palliative care encounter Code(s): Z51.5 - ENCOUNTER FOR PALLIATIVE CARE Current Visit: Yes Status: Acute (2) MONSERRAT (acute kidney injury) Code(s): N17.9 - ACUTE KIDNEY FAILURE, UNSPECIFIED Current Visit: No Status : Acute (3) Physical deconditioning Code(s): R53.81 - OTHER MALAISE Current Visit: No Status: Chronic (4) Protein calorie malnutrition Code(s): E46 - UNSPECIFIED PROTEIN-CALORIE MALNUTRITION Current Visit: No Status: Chronic - Plan/Recommendations Plan: Palliative Care is attempting to connect with patient sons to discuss Goal of Care. Consideration of return to [facility] facility with overlay of hospice. Patient with continued decline, increase in assistance required for all ADL (Activities of Daily Living), decrease in intake, poor nutrition, incontinent of bowel and bladder. Will reach out to CM to see if patient has ability to have coverage for hospice in facility. FAST 7F PPS 30 trajectory to decline Melisa [address] Le [50] minutes spent on this encounter with >50% of the time in counseling and coordination of care. Thank you for this very appropriate consult.
[2020-03-26] MEDS: cefTRIAXone\\ROCEPHIN 1 GM in Sodium Chloride 0.9% 100 ML IVPB SCH (13:23)
[2020-03-26 13:44] LABS: #Basophils 0.1 thou/uL (0.0-0.2); #Eosinphils 0.1 thou/uL (0.0-0.7); #Neutrophils 12.8 thou/uL (1.40-6.50); %Basophils 0.6 % (0.0-1.0); %Eosinophils 0.6 % (0.0-10.0); %Lymphocytes 17.6 % (21.0-51.0); %Monocytes 5.8 % (0.0-10.0); %Neutrophils 75.4 % (42.0-75.0); Mean Corpuscular HGB CONC 34.5 g/dL (32.0-36.0); Mean Corpuscular Hemoglobin 32.3 pg (27.0-31.0); Mean Corpuscular Volume 93.6 fL (78.0-98.0); Mean Platelet Volume 9.2 fL (7.4-10.4); Platelet Count 208 thou/uL (130-400); RBC Distribution Width 14.1 % (11.5-14.5); Red Blood Cell (RBC) Count 4.04 mill/uL (4.20-5.40); White Blood Cell (WBC) Count 16.9 thou/uL (4.8-10.8)
[2020-03-26 14:01] LABS: Anion Gap 16 mmol/L (10-20); BUN (Urea Nitrogen) 23 mg/dL (9.8-20.1); Calc. Creatinine Clearance 54 mL/min (70-130); Calcium 8.4 mg/dL (7.8-10.44); Carbon Dioxide 15 mmol/L (23-31); Chloride 118 mmol/L (98-107); Estimated GFR-MDRD 73; Glucose 127 mg/dL (83-110); Potassium 3.2 mmol/L (3.5-5.1); Sodium 146 mmol/L (136-145)
--- NOTE | 2020-03-26 16:29 | PDOC.HOSPP ---
- Subjective Encounter Date: 03/26/20 Encounter Time: 16:28 Subjective: Ms. Erazo was seen today in follow-up of dehydration and hypernatremia. She appears to be back to her baseline. I spoke with her nurse and she tells me she has been eating and drinking well for her. She has to be fed. She even asked for more to eat. - Objective Vital Signs & Weight: Vital Signs (12 hours) Temp Pulse Resp BP Pulse Ox 03/26/20 07:26 98.7 F 78 16 129/84 98 03/26/20 05:04 97.8 F 83 17 129/82 99 Weight Admit Weight 101 lb 3.2 oz Weight 116 lb 1 oz Most Recent Monitor Data Heart Rate from ECG 79 NIBP 91/73 NIBP BP-Mean 79 Respiration from ECG 20 SpO2 94 I&O: 03/25/20 03/26/20 03/27/20 06:59 06:59 06:59 Intake Total 1016 900 480 Output Total 800 350 Balance 216 550 480 Result Diagrams: 03/26/20 13:30 03/26/20 13:30 Additional Labs: Accuchecks 03/25/20 20:10 POC Glucose 102 Hospitalist ROS - Medication Medications: Active Medications Generic Name Dose Route Start Last Admin Trade Name Freq PRN Reason Stop Dose Admin Acetaminophen 650 mg 03/22/20 14:33 03/25/20 13:34 Tylenol PO 650 mg Q4H PRN Administration Headache/Fever/Mild Pain (1-3) Heparin Sodium (Porcine) 5,000 units 03/22/20 21:00 03/26/20 08:33 Heparin SC 5,000 units BID TRACY Administration Ceftriaxone Sodium 1 gm/ 100 mls @ 200 mls/hr 03/23/20 13:00 03/26/20 13:23 Sodium Chloride IVPB 100 mls Q24HR TRACY Administration Sodium Chloride 1,000 mls @ 30 mls/hr 03/24/20 12:45 03/26/20 02:49 Normal Saline 0.9% IV 1,000 mls .Q24H TRACY Administration Nifedipine 30 mg 03/23/20 09:00 03/26/20 08:32 Procardia Xl PO 30 mg DAILY TRACY Administration Senna/Docusate Sodium 1 tab 03/22/20 21:00 03/26/20 08:31 Senokot S PO 1 tab BID TRACY Administration Sodium Chloride 10 ml 03/23/20 21:00 03/26/20 08:32 Flush - Normal Saline IVF Not Given Q12HR TRACY - Exam Eye: PERRL, anicteric sclera Heart: RRR, no murmur, no gallops, no rubs, normal peripheral pulses Respiratory: CTAB, no wheezes, no rales, no ronchi, normal chest expansion Gastrointestinal: soft, non-tender, non-distended, normal bowel sounds, no palpable masses Extremities: no cyanosis, no edema Hosp A/P (1) Hypernatremia Code(s): E87.0 - HYPEROSMOLALITY AND HYPERNATREMIA Status: Acute (2) UTI (urinary tract infection) Status: Acute (3) Physical deconditioning Code(s): R53.81 - OTHER MALAISE Status: Chronic (4) Protein calorie malnutrition Code(s): E46 - UNSPECIFIED PROTEIN-CALORIE MALNUTRITION Status: Chronic (5) MONSERRAT (acute kidney injury) Code(s): N17.9 - ACUTE KIDNEY FAILURE, UNSPECIFIED Status: Acute - Plan * Hypernatremia- resolved * Acute kidney injury- improved * UTI- she is taking in oral nutrition well- will change the antibiotic to Omnicef * HTN- blood pressure is stable- Continue to hold Lisinopril * I have tried calling her son twice, and the phone goes directly to voice mail * She is stable for discharge back to the nursing facility
[2020-03-26] MEDS: Cefdinir 300 MG CAP PO SCH (21:50)
[2020-03-27 06:42] LABS: Anion Gap 13 mmol/L (10-20); BUN (Urea Nitrogen) 25 mg/dL (9.8-20.1); Calc. Creatinine Clearance 60 mL/min (70-130); Calcium 7.8 mg/dL (7.8-10.44); Carbon Dioxide 17 mmol/L (23-31); Chloride 120 mmol/L (98-107); Estimated GFR-MDRD 83; Glucose 91 mg/dL (83-110); Potassium 3.7 mmol/L (3.5-5.1); Sodium 146 mmol/L (136-145)
[2020-03-27] MEDS: NIFEdipine XL 30 MG TAB PO SCH (07:43)
[2020-03-27] MEDS: Cefdinir 300 MG CAP PO SCH ×2 (07:43→19:35)
[2020-03-27] MEDS: Heparin 5,000 UNITS/ML VIAL SC SCH ×2 (07:44→19:35)
[2020-03-27] MEDS: Senokot S 8.6-50 MG TAB PO SCH ×2 (07:44→19:35)
[2020-03-27] MEDS ORDERED: Dextrose 5% in Water 1,000 ML IV SCH (08:00)
[2020-03-27 12:43] LABS: Anion Gap 14 mmol/L (10-20); BUN (Urea Nitrogen) 22 mg/dL (9.8-20.1); Calc. Creatinine Clearance 59 mL/min (70-130); Calcium 8.2 mg/dL (7.8-10.44); Carbon Dioxide 18 mmol/L (23-31); Chloride 116 mmol/L (98-107); Estimated GFR-MDRD 86; Glucose 81 mg/dL (83-110); Potassium 4.1 mmol/L (3.5-5.1); Sodium 144 mmol/L (136-145)
[2020-03-27 13:00] LABS: Hemoglobin 12.3 g/dL (12.0-16.0); Mean Corpuscular HGB CONC 33.4 g/dL (32.0-36.0); Mean Corpuscular Hemoglobin 31.9 pg (27.0-31.0); Mean Corpuscular Volume 95.6 fL (78.0-98.0); Mean Platelet Volume 10.2 fL (7.4-10.4); Platelet Count 151 thou/uL (130-400); RBC Distribution Width 14.4 % (11.5-14.5); Red Blood Cell (RBC) Count 3.87 mill/uL (4.20-5.40); White Blood Cell (WBC) Count 15.3 thou/uL (4.8-10.8)
[2020-03-27 13:42] LABS: Band 5 % (5-11); Eosinophils 2 % (0-10); Lymphocytes 31 % (21-51); MDiff Complete? YES; Monocytes 7 % (0-10); Neutrophil 51 % (42-75); Platelet Morphology Comment Appears Adequate; Polychromasia SLIGHT = 2-3 cells (100X) (0-2/hpf); Reactive Lymphocytes 4 % (0-10)
--- NOTE | 2020-03-27 18:19 | PDOC.HOSPP ---
- Subjective Encounter Date: 03/27/20 Encounter Time: 18:17 Subjective: Ms. Carranza was seen earlier aroud noon. She is awake and alert, but confused. No complaints. - Objective Vital Signs & Weight: Vital Signs (12 hours) Temp Pulse Resp BP Pulse Ox 03/27/20 08:00 99 03/27/20 07:43 62 03/27/20 07:27 98.0 F 62 16 119/78 99 Weight Admit Weight 101 lb 3.2 oz Weight 110 lb 10.753 oz Most Recent Monitor Data Heart Rate from ECG 79 NIBP 91/73 NIBP BP-Mean 79 Respiration from ECG 20 SpO2 94 I&O: 03/26/20 03/27/20 03/28/20 06:59 06:59 06:59 Intake Total 900 1200 720 Output Total 350 350 Balance 550 850 720 Result Diagrams: 03/27/20 12:19 03/27/20 12:19 Hospitalist ROS - Medication Medications: Active Medications Generic Name Dose Route Start Last Admin Trade Name Freq PRN Reason Stop Dose Admin Acetaminophen 650 mg 03/22/20 14:33 03/25/20 13:34 Tylenol PO 650 mg Q4H PRN Administration Headache/Fever/Mild Pain (1-3) Cefdinir 300 mg 03/26/20 21:00 03/27/20 07:43 Omnicef PO 300 mg BID TRACY Administration Heparin Sodium (Porcine) 5,000 units 03/22/20 21:00 03/27/20 07:44 Heparin SC 5,000 units BID TRACY Administration Dextrose/Water 1,000 mls @ 75 mls/hr 03/27/20 08:00 03/27/20 08:08 D5w IV 1,000 mls .[id number] TRACY Administration Nifedipine 30 mg 03/23/20 09:00 03/27/20 07:43 Procardia Xl PO 30 mg DAILY TRACY Administration Potassium Chloride 20 meq 03/27/20 08:00 03/27/20 07:43 Klor-Con PO 20 meq QAM-WM TRACY Administration Senna/Docusate Sodium 1 tab 03/22/20 21:00 03/27/20 07:44 Senokot S PO 1 tab BID TRACY Administration Sodium Chloride 10 ml 03/23/20 21:00 03/27/20 07:46 Flush - Normal Saline IVF Not Given Q12HR TRACY - Exam Eye: PERRL, anicteric sclera Heart: RRR, no murmur, no gallops, no rubs, normal peripheral pulses Respiratory: CTAB, no wheezes, no rales, no ronchi, normal chest expansion Extremities: 1+ LE edema Hosp A/P (1) Hypernatremia Code(s): E87.0 - HYPEROSMOLALITY AND HYPERNATREMIA Status: Acute (2) UTI (urinary tract infection) Status: Acute (3) Physical deconditioning Code(s): R53.81 - OTHER MALAISE Status: Chronic (4) Protein calorie malnutrition Code(s): E46 - UNSPECIFIED PROTEIN-CALORIE MALNUTRITION Status: Chronic (5) MONSERRAT (acute kidney injury) Code(s): N17.9 - ACUTE KIDNEY FAILURE, UNSPECIFIED Status: Acute - Plan * Hypernatremia- resolved * Acute kidney injury- improved * UTI- She has been transitioned to Omnicef * Stable for discharge back to [facility]
[2020-03-27 20:43] VITALS: BP 117/74; TEMP 98.6
--- NOTE | 2020-03-27 23:49 | DIS ---
DATE OF ADMISSION: 03/22/2020 DATE OF DISCHARGE: 03/27/2020 DISCHARGE DISPOSITION: Back to the [facility]. DISCHARGE DIAGNOSES: 1. Hypernatremia. 2. Severe dehydration. 3. Acute kidney injury. 4. Urinary tract infection. 5. Dementia. 6. Hypertension. DISCHARGE MEDICATIONS: Include; 1. Omnicef 300 mg p.o. b.i.d. 2. Megace 400 mg p.o. before every meal. 3. Hydralazine 50 mg p.o. t.i.d. 4. Multivitamin one tablet p.o. daily. 5. Tramadol 50 mg q.6 as needed. 6. Docusate sodium one tablet twice a day. IMAGING DONE DURING HOSPITAL STAY: The patient had a CT scan of the brain, which was negative for any acute intracranial abnormality. The patient also had a renal ultrasound showing no evidence of hydronephrosis. CODE STATUS: DNAR. ALLERGIES: NO KNOWN DRUG ALLERGIES. HOSPITAL COURSE: Ms. Erazo is a pleasant 75-year-old female, who was sent to the emergency room from the custodial due to lethargy and dehydration. She was found to be hypernatremic and also found to have urinary tract infection. She was hydrated and her serum sodium corrected. She was also found to have a urinary tract infection. Her urine cultures grew E. coli, which was pansensitive. She was treated with Rocephin IV and then transitioned to Omnicef. By the time of discharge, she was eating well with the assistance of a feeder. She was even asking for more food and was drinking well. It appears as if she will need quite a bit of assistance with her nutrition as far as someone helping her or assisting her to eat once she leaves the hospital and enters the custodial. I spoke to the patient's sons about this and they stated that they were aware of this and she was doing a lot better when they were able to visit prior to the COVID pandemic, where now they are not able to see and sit with her mom. The instructions will go to the custodial that they need to help and assistance with feeding and hopefully, she will be able to maintain her hydration status in the outpatient setting. Job ID: [id number]
== END 2020-03-27 20:05 | DRG 682 ==
LOC: ERS 11:09 → ERHOLD 14:05 → IMCU/EMU 22:28 → T4-B 03-25 19:16
PROVIDERS: ADMIT Internal Medicine; ATTEND Internal Medicine
DX: N17.9 Acute kidney failure, unspecified (principal); G93.41 Metabolic encephalopathy; E87.0 Hyperosmolality and hypernatremia; N39.0 Urinary tract infection, site not specified; E87.2 Acidosis; E46 Unspecified protein-calorie malnutrition; Z68.1 Body mass index [BMI] 19.9 or less, adult; R64 Cachexia; Z20.828 Contact with and (suspected) exposure to other viral communicable diseases; Z66 Do not resuscitate; Z51.5 Encounter for palliative care; E86.0 Dehydration; F03.90 Unspecified dementia, unspecified severity, without behavioral disturbance, psychotic disturbance, mood disturbance, and anxiety; B96.20 Unspecified Escherichia coli [E. coli] as the cause of diseases classified elsewhere; R13.10 Dysphagia, unspecified; N18.9 Chronic kidney disease, unspecified; D63.1 Anemia in chronic kidney disease; I12.9 Hypertensive chronic kidney disease with stage 1 through stage 4 chronic kidney disease, or unspecified chronic kidney disease; Z79.899 Other long term (current) drug therapy; Z90.49 Acquired absence of other specified parts of digestive tract; Z90.710 Acquired absence of both cervix and uterus; Z87.891 Personal history of nicotine dependence
CPT/HCPCS: 36415; 36416; 36600; 51701; 70450; 71045; 76770; 80048; 80053; 81003; 81015; 82553; 83605; 83690; 84484; 85025; 87040; 87077; 87086; 87186; 87635; 93005; 96361; 96365; J0696; J1644; J3490; U0003

== ENCOUNTER 2020-06-23 15:05 | Inpatient (IN) | payer MEDICARE ==
[~2020-06-23 15:05] MED LIST: Iopamidol-370 76% 500 ML 1 ML ONE
[2020-06-23] MEDS ORDERED: fentaNYL Citrate/PF 2,000 MCG in Sodium Chloride 0.9% 60 ML IV SCH (15:30)
[2020-06-23] MEDS ORDERED: Fentanyl 100 MCG/2 ML VIAL ONE (15:33)
[2020-06-23] MEDS ORDERED: Midazolam HCl 5 mg/ml Vial ONE (15:33)
[2020-06-23] MEDS ORDERED: Vancomycin 1 GM/200 ML BAG ONE (15:35)
[2020-06-23] MEDS ORDERED: Sodium Chloride 0.9% 100 ML ONE (15:35)
[2020-06-23] MEDS ORDERED: Cefepime 2 GM VIAL ONE (15:35)
[2020-06-23 15:43] LABS: #Basophils 0.1 thou/uL (0.0-0.2); #Eosinphils 0.1 thou/uL (0.0-0.7); #Lymphocytes 2.5 thou/uL (1.20-3.40); #Monocytes 1.4 thou/uL (0.11-0.59); #Neutrophils 13.7 thou/uL (1.40-6.50); %Basophils 0.5 % (0.0-1.0); %Eosinophils 0.3 % (0.0-10.0); %Lymphocytes 13.9 % (21.0-51.0); %Monocytes 7.7 % (0.0-10.0); %Neutrophils 77.6 % (42.0-75.0); Hemoglobin 14.9 g/dL (12.0-16.0); Mean Corpuscular HGB CONC 31.2 g/dL (32.0-36.0); Mean Corpuscular Hemoglobin 29.9 pg (27.0-31.0); Mean Corpuscular Volume 95.8 fL (78.0-98.0); Platelet Count 317 thou/uL (130-400); RBC Distribution Width 15.5 % (11.5-14.5); White Blood Cell (WBC) Count 17.6 thou/uL (4.8-10.8)
[2020-06-23 15:50] LABS: INR-International Normal Ratio 1.2; PTT 28.3 sec (22.9-36.1); Prothrombin Time 15.2 sec (12.0-14.7)
[2020-06-23 15:51] LABS: Bacteria/HPF 4+ HPF (None Seen); Bilirubin Negative (Negative); Blood, Urine 1+ (Negative); Clarity Extra Turbid (Clear); Glucose, Urine (Dipstick) Normal (Negative); Ketone, Urine Negative (Negative); Leukocyte 500 Leu/uL (Negative); Nitrite 2+ (Negative); Protein, Urine (Dipstick) 30 mg/dL (Neg-Trace); Specific Gravity, Urine 1.025 (1.002-1.036); Squamous Epithelial 0-3 HPF (0-3); Urobilinogen Normal mg/dL (Less than 2); WBC/HPF Greater than 50 HPF (0-3); pH, Urine 5.5 (5.0-9.0)
[2020-06-23 15:52] LABS: Actual Bicarbonate (HCO3a) 15.7 mEq/L (22-28); Analyzer IN Cardio ER; Base Excess (BEa) -6.5 mEq/L (-2.0 to +3.0); Calcium, Ionized (arterial) 1.19 mmol/L (1.12-1.30); Carboxyhemoglobin (COHb) 0.3 gm% (0.0-3.0); Hemoglobin (Hb) 14.6 g/dL (12.0-16.0); O2 Tension (PaO2), arterial 95.1 mmHg (> 70.0); Potassium - ABG Lab 3.63 mmol/L (3.70-5.30); pH, Arterial 7.43 (7.35-7.45)
[2020-06-23 15:58] LABS: D-Dimer Test 13.15 *mcg/mL (0.27-0.43)
[2020-06-23 16:04] LABS: ALT (SGPT) 16 U/L (8-55); AST (SGOT) 14 U/L (5-34); Albumin 3.7 g/dL (3.4-4.8); Alkaline Phosphatase 59 U/L (40-110); Anion Gap 18 mmol/L (10-20); BUN (Urea Nitrogen) 53 mg/dL (9.8-20.1); Bilirubin, Total 0.6 mg/dL (0.2-1.2); Calc. Creatinine Clearance 0 mL/min (70-130); Calcium 8.9 mg/dL (7.8-10.44); Carbon Dioxide 18 mmol/L (23-31); Estimated GFR-MDRD 44; Globulin 2.7 g/dL (2.4-3.5); Glucose 119 mg/dL (83-110); Lipase 20 U/L (8-78); Magnesium 2.3 mg/dL (1.6-2.6); Potassium 3.9 mmol/L (3.5-5.1); Protein, Total 6.4 g/dL (6.0-8.3); Sodium 159 mmol/L (136-145)
[2020-06-23 16:08] LABS: Puncture Site RRA
[2020-06-23 16:18] LABS: Chloride 127 mmol/L (98-107)
[2020-06-23 17:29] LABS: SARS-CoV-2 NAA Rapid Test Not Detected (NotDetected)
--- NOTE | 2020-06-23 17:29 | RAD ---
PORTABLE CHEST: Date: 06-23-2020 PROVIDED CLINICAL HISTORY: Sepsis FINDINGS: Comparison 03-22-2020. Cardiac and mediastinal silhouette is unchanged in appearance. Enteric catheter is noted, the tip of which overlies the left upper quadrant. Right IJ central line is noted, with tip overlying the expect ed location of SVC. No focal consolidations, pleural fluid, or pneumothorax apparent. IMPRESSION: No evidence for an acute cardiopulmonary process. POS: KRUPA
--- NOTE | 2020-06-23 17:37 | PDOC.FPRHP ---
- History of Present Illness Chief Complaint: respiratory distress History of Present Illness: This is a 75yo F with PMH of HTN and dementia who presented with CC of respiratory distress with known COVID pos status from [facility]. Minimal other history known about patient at this time. [facility] When EMS arrived patient was gurgling and she was having severe respiratory distress. She was intubated in the field due to this. History obtained from EMS and ER record. Per [facility] positive on Jun 04, unsure when symptoms started. They stated she had been moved from the COVID unit and had been doing well since then. She acutely became ill today. ED Course: Lovenox 1mg/kg, fentanyl 50mcg and 1mcg/kg/hr, midazolam 2.5mg IV, Duoneb, NS 30ml/kg, levaquin, vanc, cefepime, - Allergies/Adverse Reactions Allergies Allergy/AdvReac Type Severity Reaction Status Date / Time No Known Allergies Allergy Verified 06/23/20 18:11 - Home Medications Medication Instructions Recorded Confirmed Type traMADol HCl [Ultram] 50 mg PO Q6H PRN tab 01/07/18 03/23/20 Rx Multivitamin W/ Minerals 1 tab PO DAILY tab 01/10/18 03/23/20 Rx [Theragran M] Sennosides/Docusate Sodium 1 tab PO BID #10 tab 01/10/18 03/23/20 Rx [Senokot S] Megestrol Acetate 400 mg PO AC 03/23/20 03/23/20 History hydrALAZINE HCl [Hydralazine HCl] 50 mg PO TID 03/23/20 03/23/20 History Cefdinir [Omnicef] 300 mg PO BID #10 cap 03/27/20 Rx - History PMHx: HTN, hx of intracerebral hemorrhage - Jul of last year, dementia PSHx: none FHx: non contributory Social: lives at [facility], MPOA is son - Review of Systems ROS unobtainable: due to endotracheal tube - Vital signs BP: 123/79, MAP: 93, Pulse: 74, Resp: 12/12, Temp: 98 (Criticore Temp), Pain: 0, O2 sat: 100 on (Ventilator), End-Tidal CO2: 24, Time: 06/23/2020 17:45. Weight 68kg BP: 137/91, MAP: 106, Pulse: 110, Resp: 14vent/14, Temp: 101.7 (Rectal), Pain: 0, O2 sat: 100 on (Ventilator), Time: 06/23/2020 15:13. - Physical Exam HEENT: normocephalic and atraumatic Neck: supple, trachea midline Heart: RRR, normal S1/S2, no murmurs/rubs/gallops, pulses present, no edema -Lungs: diffuse rhonchi anteriorly, on the ventilator - ET tube in place Abdomen: soft, bowel sounds present, no masses/distention -Neurological: On the vent, sedated - right sided UE - contracted, decreased reflexes diffusely, minimal pupillary response, minimal corneal reflex, no response to pain, opens eyes with sternal rub -Skin: decreased skin turgor and cap refill Heme/Lymphatic: no purpura, no petechia FMR H&P: Results - Labs Result Diagrams: 06/23/20 15:21 06/23/20 15:21 Lab results: WBC 17.6 thou/uL (4.8-10.8) H 06/23/20 15:21 Hgb 14.9 g/dL (12.0-16.0) 06/23/20 15:21 Hct 47.9 % (36.0-47.0) H 06/23/20 15:21 MCV 95.8 fL (78.0-98.0) 06/23/20 15:21 Plt Count 317 thou/uL (130-400) 06/23/20 15:21 Neutrophils % 77.6 % (42.0-75.0) H 06/23/20 15:21 ABG pH 7.43 (7.35-7.45) 06/23/20 15:35 ABG pCO2 24.0 mmHg (35.0-45.0) L* 06/23/20 15:35 ABG pO2 95.1 mmHg (> 70.0) H 06/23/20 15:35 Sodium 159 mmol/L (136-145) H 06/23/20 15:21 Potassium 3.9 mmol/L (3.5-5.1) 06/23/20 15:21 Chloride 127 mmol/L (98-107) H* 06/23/20 15:21 Carbon Dioxide 18 mmol/L (23-31) L 06/23/20 15:21 BUN 53 mg/dL (9.8-20.1) H 06/23/20 15:21 Creatinine 1.19 mg/dL (0.6-1.1) H 06/23/20 15:21 Glucose 119 mg/dL (83-110) H 06/23/20 15:21 Lactic Acid 1.9 mmol/L (0.5-2.2) 06/23/20 15:21 Calcium 8.9 mg/dL (7.8-10.44) 06/23/20 15:21 Total Bilirubin 0.6 mg/dL (0.2-1.2) 06/23/20 15:21 AST 14 U/L (5-34) 06/23/20 15:21 ALT 16 U/L (8-55) 06/23/20 15:21 Alkaline Phosphatase 59 U/L (40-110) 06/23/20 15:21 CK-MB (CK-2) 2.0 ng/mL (0-6.6) 06/23/20 15:21 B-Natriuretic Peptide 82.3 pg/mL (0-100) 06/23/20 15:21 Serum Total Protein 6.4 g/dL (6.0-8.3) 06/23/20 15:21 Albumin 3.7 g/dL (3.4-4.8) 06/23/20 15:21 Lipase 20 U/L (8-78) 06/23/20 15:21 Urine Ketones Negative mg/dL (Negative) 06/23/20 15:37 Urine Blood 1+ (Negative) A 06/23/20 15:37 Urine Nitrite 2+ (Negative) A 06/23/20 15:37 Ur Leukocyte Esterase 500 Chitra/uL (Negative) A 06/23/20 15:37 Urine RBC 11-20 HPF (0-3) A 06/23/20 15:37 Urine WBC Greater than 50 HPF (0-3) A 06/23/20 15:37 Ur Squamous Epith Cells 0-3 HPF (0-3) 06/23/20 15:37 Urine Bacteria 4+ HPF (None Seen) A 06/23/20 15:37 - Radiology Interpretation Chest x-ray Status: image reviewed by me, report reviewed by me (no acute cardiopulm process) Other Status: report reviewed by me (CTA - no evidence of PE, opacification of the LLL bronchus compatible with aspiration and associated LLL atelectasis and aspiration PNA; scattered nodules - possible infectious) CT scan - head Status: report reviewed by me (No intracranial hemorrhage and mass effect) US - venous Status: report reviewed by me (extensive DVT involving the RLE including occlusive DVT within the right common femoral and greater saphenous veins) FMR H&P: A/P - Plan Acute Hypoxic Resp Distress 2/2 LLL aspiration PNA Patient reportedly febrile at [facility], known pos COVID status as of 06/04, unknown onset of symptoms. CXR: no evidence of an acute cardiopulm process. Rapid COVID test neg in the ER. Procal 0.13. ABG pH 7.43, bicarb 15.7, CO2 24, base excess -6.5. Patient is currently intubated and sedated. - Per son who is MPOA, patient is DNAR and would not want to be intubated. Will consult palliative care and hospice with efforts to transition to hospice care as soon as possible. - Care at this point is futile and appears to be imminent. - Will admit to medical with the intent to extubate and seek comfort measures with hospice. Communicated this with son with is in agreement and on his way to the facility now. Plan is to extubate in the ER and move to the medical floor. - Will continue on clindamycin for abx coverage UTI Previously treated in Mar 2020 for UTI. Previous Ucx showing E coli, pansensitive. UA today showing signs of infection. - Will continue on clindamycin. Ucx pending. DVT, RLE US doppler showing extensive deep venous thrombosis involving the RLE with right common femoral and greater saphenous veins - th lovenox given in the ER. Will continue on lovenox for now. Hypernatremia 2/2 severe dehydration Na 159 on admission, Cl 127 - Will give IVF Hx of intracerebral hemorrhage - Per son occurred in Jul of this year CKD Stage 3b BUN/Cr: 53/1.19. GFR 44. CrCl of 45. HTN - aware, currently stable and wnl. Dementia - aware Code: DNAR, currently intubated with plan to extubate. OOHDNR paperworked faxed from [facility]. Diet: NPO PCP: [facility] Case discussed with Dr. Watkins Addendum - Attending - Attending Attestation Date/Time: 06/24/20 0013 I personally evaluated the patient and discussed the management with Dr. Ngo at time of admission and in the ER. I agree with the History, Examination, Assessment and Plan documented above with any addition or exceptions noted below. Hospice care planned with son. Imminent expected. Providing care according to patients wishes.
--- NOTE | 2020-06-23 18:09 | ULT ---
RIGHT LOWER EXTREMITY VENOUS DOPPLER: Date: 06-23-2020 PROVIDED CLINICAL HISTORY: Evidence for DVT FINDINGS: Grayscale and color doppler sonography was performed of the right common femoral, femoral, popliteal, posterior tibial, greater saphenous and profunda femoral veins. There is luminal echogenicity and no n-compressibility demonstrated involving all of the interrogated vessels compatible with venous throm bosis. The common femoral and greater saphenous veins demonstrate no flow. Flow is demonstrated withi n portions of the femoral and popliteal veins. IMPRESSION: Extensive deep venous thrombosis involving the right lower extremity including occlusive DVT within t he right common femoral and greater saphenous veins. POS: KRUPA
[2020-06-23] MEDS ORDERED: Dexamethasone 10 MG/ML VIAL ONE (18:10)
[2020-06-23] MEDS ORDERED: Enoxaparin Sodium 80 MG/0.8 ML SYRINGE ONE (18:10)
--- NOTE | 2020-06-23 18:23 | CT ---
CT BRAIN: Date: 06-23-2020 PROVIDED CLINICAL HISTORY: Altered mental status FINDINGS: Comparison 03-22-2020. The ventricular system appears normal in size and morphology. There is no evidence for intracranial h emorrhage or mass effect. Chronic microvascular ischemic changes are again seen involving the cerebra l white matter. The extracranial soft tissues and osseous structures demonstrate no significant abnor mality. IMPRESSION: No evidence for intracranial hemorrhage or mass effect. POS: KRUPA
--- NOTE | 2020-06-23 18:42 | CT ---
CT PULMONARY ANGIOGRAM WITH IV CONTRAST AND 3D MIP RECONSTRUCTIONS: Date: 06-23-2020 PROVIDED CLINICAL HISTORY: Unresponsive FINDINGS: There is no evidence for central or segmental pulmonary embolus. There is ectasia of the ascending th oracic aorta. There is heterogeneous attenuation due to mixing artifact within the aortic arch. There is a 1 cm nodular density at the lateral aspect of the left upper lobe as well as several subcentime ter nodules involving the central aspects of the right upper lobe. There is opacification of the left lower lobe bronchus with conspicuous volume loss involving the left lobe associated with consolidati on. There is no portal fluid or pneumothorax apparent. The visualized portions of the upper abdomen a ppear unremarkable. Enteric catheter tip terminates in the midportion of the stomach. The endotrachea l tube tip terminates proximal to the thoracic inlet and could be advanced. Vascular calcification in cluding coronary calcium is demonstrated. IMPRESSION: 1. No evidence for central or segmental pulmonary embolus. 2. Opacification of the left lower lobe bronchus compatible with aspiration and associated left lower lobe atelectasis and aspiration pneumonia. 3. Vascular calcification including coronary calcium. 4. Scattered nodules possible infectious. Follow up is recommended to exclude neoplasm. 5. ET positioning as above. Code LN POS: KRUPA
[2020-06-23] MEDS ORDERED: Ondansetron PF 4 MG/2 ML Vial IVP PRN (19:11)
[2020-06-23] MEDS ORDERED: Lorazepam 2 MG/ML VIAL SLOW IVP PRN (19:11)
[2020-06-23] MEDS ORDERED: Dextrose 5% in Water 1,000 ML IV SCH (19:15)
[2020-06-23] MEDS ORDERED: Morphine 2 MG/ML VIAL SLOW IVP SCH (19:30)
[2020-06-23] MEDS ORDERED: Morphine 2 MG/ML VIAL SLOW IVP PRN (19:31)
[2020-06-24] MEDS ORDERED: Clindamycin/D5W 600 MG in Premix Bag 1 BAG IVPB SCH (06:00)
[2020-06-24] MEDS ORDERED: Enoxaparin Sodium 60 MG/0.6 ML SYRINGE SC SCH (09:00)
== END 2020-06-23 23:01 | disposition hospice, inpatient (51) | DRG 871 ==
LOC: ERS 15:05 → T4-B 15:13
PROVIDERS: ADMIT Family Medicine; ATTEND Family Medicine
PROC: 5A1935Z Respiratory Ventilation, Less than 24 Consecutive Hours (ICD-10-PCS; principal; 2020-06-23)
PROC: 02HV33Z Insertion of Infusion Device into Superior Vena Cava, Percutaneous Approach (ICD-10-PCS; 2020-06-23)
PROC: 05HM33Z Insertion of Infusion Device into Right Internal Jugular Vein, Percutaneous Approach (ICD-10-PCS; 2020-06-23)
DX: A41.9 Sepsis, unspecified organism (principal); J69.0 Pneumonitis due to inhalation of food and vomit; N39.0 Urinary tract infection, site not specified; E87.1 Hypo-osmolality and hyponatremia; Z66 Do not resuscitate; E86.0 Dehydration; Z20.828 Contact with and (suspected) exposure to other viral communicable diseases; N18.32 Chronic kidney disease, stage 3b; I12.9 Hypertensive chronic kidney disease with stage 1 through stage 4 chronic kidney disease, or unspecified chronic kidney disease; F03.90 Unspecified dementia, unspecified severity, without behavioral disturbance, psychotic disturbance, mood disturbance, and anxiety; R13.10 Dysphagia, unspecified; B96.20 Unspecified Escherichia coli [E. coli] as the cause of diseases classified elsewhere; Z79.899 Other long term (current) drug therapy
CPT/HCPCS: 36415; 36416; 36600; 70450; 71045; 71275; 80053; 81003; 81015; 82553; 82805; 83605; 83690; 83735; 83880; 84145; 84484; 85025; 85379; 85610; 85730; 87077; 87086; 87149; 87186; 87804; 93005; 94640; J0692; J1100; J1650; J1956; J2250; J3010; J3370; J3490; J7620; U0002

== ENCOUNTER 2020-06-23 23:03 | Inpatient (IN) | payer MEDICARE, OTHER ==
[2020-06-23] MEDS ORDERED: Lorazepam 1 MG TAB PO PRN (23:45)
[2020-06-23] MEDS ORDERED: Ondansetron PF 4 MG/2 ML Vial IVP PRN (23:45)
[2020-06-24] MEDS ORDERED: Morphine 2 MG/ML VIAL SLOW IVP SCH
[2020-06-24] MEDS: Scopolamine 1.5 mg/72 hour Patch TOP PRN (01:27)
[2020-06-24] MEDS: Morphine 2 MG/ML VIAL SLOW IVP SCH ×6 (01:27→22:34)
[2020-06-24 03:12] VITALS: BMI 24.9
[2020-06-24] MEDS: Morphine 2 MG/ML VIAL SLOW IVP PRN (14:21)
[2020-06-25] MEDS: Morphine 2 MG/ML VIAL SLOW IVP SCH ×6 (01:10→20:30)
[2020-06-25] MEDS: Lorazepam 2 MG/ML VIAL SLOW IVP PRN (11:03)
[2020-06-25] MEDS: Scopolamine 1.5 mg/72 hour Patch TOP PRN (17:43)
[2020-06-25] MEDS ORDERED: Acetaminophen 650 MG Suppository PR PRN (19:11)
[2020-06-26] MEDS: Morphine 2 MG/ML VIAL SLOW IVP SCH ×6 (00:33→20:46)
[2020-06-26] MEDS: Lorazepam 2 MG/ML VIAL SLOW IVP PRN (11:41)
[2020-06-27] MEDS: Morphine 2 MG/ML VIAL SLOW IVP SCH ×7 (00:44→22:13)
[2020-06-27] MEDS: Lorazepam 2 MG/ML VIAL SLOW IVP PRN (18:25)
[2020-06-27 21:33] VITALS: BP 171/125; TEMP 100
[2020-06-27] MEDS: Morphine 2 MG/ML VIAL SLOW IVP PRN (22:13)
[2020-06-28] MEDS: Morphine 2 MG/ML VIAL SLOW IVP SCH (00:15)
--- NOTE | 2020-06-28 13:47 | DIS ---
DATE OF ADMISSION: 06/23/2020 DATE OF DISCHARGE: 06/28/2020 DATE OF : 06/28/2020. TIME OF : 0242 hours. BRIEF SUMMARY OF HOSPITAL COURSE: The patient was an unfortunate 75-year-old white female with a history of hypertension and dementia, who developed acute hypoxic respiratory failure due to aspiration pneumonia. The patient was intubated by EMS after found to be unresponsive at the [facility]. The patient had a history in the past of COVID status, but appears to have aspiration. In the emergency room, the family was called after the patient was found to have left lower lobe pneumonia as well as UTI. After calling the son, he determined as the medical power of claim attorney that his mother would not want to be intubated and requested hospice and comfort measures only. Thus, the patient was admitted to inpatient hospice. During her hospital course, she was given IV morphine for comfort and distress including respiratory distress. Ativan was given for any restlessness such as terminal restlessness. Suctioning was available as needed and was given scopolamine patches for secretion control. The patient made fairly comfortable and was found on 06/28/2020 at 0242 hours. Nurse went into room, found the patient to be without respirations, without pulse and unresponsive and was pronounced at that time. The son was notified as well as home and body was released per family wishes. CAUSE OF : Asystole secondary to cardiac arrhythmia, which was in part due to acute hypoxic respiratory failure due to aspiration pneumonia. Job ID: [id number]
== END 2020-06-28 02:42 | disposition expired | DRG 951 ==
LOC: T4-B 23:03
PROVIDERS: ADMIT Family Medicine; ATTEND Family Medicine
DX: Z51.5 Encounter for palliative care (principal); A41.9 Sepsis, unspecified organism; Z66 Do not resuscitate; J96.00 Acute respiratory failure, unspecified whether with hypoxia or hypercapnia; J69.0 Pneumonitis due to inhalation of food and vomit; N39.0 Urinary tract infection, site not specified; E87.0 Hyperosmolality and hypernatremia; I82.401 Acute embolism and thrombosis of unspecified deep veins of right lower extremity; I10 Essential (primary) hypertension; E86.0 Dehydration; N18.30 Chronic kidney disease, stage 3 unspecified; I12.9 Hypertensive chronic kidney disease with stage 1 through stage 4 chronic kidney disease, or unspecified chronic kidney disease; F03.90 Unspecified dementia, unspecified severity, without behavioral disturbance, psychotic disturbance, mood disturbance, and anxiety; Z79.899 Other long term (current) drug therapy; Z86.73 Personal history of transient ischemic attack (TIA), and cerebral infarction without residual deficits; Z86.19 Personal history of other infectious and parasitic diseases; I46.8 Cardiac arrest due to other underlying condition
CPT/HCPCS: J2060; J2270